=== PATIENT | male | born 1945 | race Caucasian/White ===

== ENCOUNTER → 2016-07-09 | Outpatient (REF) | payer OTHER ==
[~2016-07-09] MED LIST: ASPI325T PO; ATEN100T PO; ATOR40TA PO; BACT800T5 PO; CHLO25TA3 PO; GEMF600T PO; HYDR12.55 PO; HYDR12CA OR; MACR100C3 PO; PERC5TAB6 PO; PLAV75TA38 PO; POTA20PO4 PO; PRIN10TA PO; PROS5TAB PO; ROPI0.5T PO; TAMS0.4C PO; TYLE325T5 PO
[2016-07-09 10:08] LABS: MEAN CORPUSCULAR HEMOGLOBIN 31.9 pg (27.0-33.0); MEAN CORPUSCULAR HGB CONC 34.7 g/dl (32.0-36.5); MEAN CORPUSCULAR VOLUME 91.8 fl (80.0-96.0); RED CELL DISTRIBUTION WIDTH 12.9 % (11.5-14.5); WHITE BLOOD COUNT 6.6 K/mm3 (4.0-10.0)
[2016-07-09 10:30] LABS: ALBUMIN 3.4 GM/DL (3.2-5.2); ALBUMIN/GLOBULIN RATIO 0.87 (1.00-1.93); ALKALINE PHOSPHATASE 77 U/L (45-117); ALT/SGPT 16 U/L (12-78); ANION GAP 6 MEQ/L (8-16); AST/SGOT 16 U/L (15-37); BILIRUBIN,TOTAL 0.6 MG/DL (0.2-1.0); BLOOD UREA NITROGEN 13 MG/DL (7-18); CALCIUM LEVEL 8.7 MG/DL (8.8-10.2); CARBON DIOXIDE LEVEL 31 MEQ/L (21-32); CHLORIDE LEVEL 105 MEQ/L (98-107); CHOLESTEROL LEVEL 105 MG/DL (<200); CREATININE FOR GFR 0.87 MG/DL (0.70-1.30); GLOMERULAR FILTRATION RATE > 60.0 (>42); GLUCOSE, FASTING 105 MG/DL (83-110); POTASSIUM SERUM 4.4 MEQ/L (3.5-5.1); SODIUM LEVEL 142 MEQ/L (136-145); TOTAL PROTEIN 7.3 GM/DL (6.4-8.2); TRIGLYCERIDES LEVEL 158 MG/DL (<150)
== END | disposition home or self-care (01) ==
LOC: M LABDRAW1 09:35
PROVIDERS: ATTEND Family Medicine
DX: I65.29 Occlusion and stenosis of unspecified carotid artery (principal); E78.2 Mixed hyperlipidemia

== ENCOUNTER → 2016-07-10 | Outpatient (REF) | payer OTHER ==
[2016-07-10 15:44] LABS: MICROSCOPIC INDICATED? MAN YES (NO)
[2016-07-10 15:45] LABS: FREE T4 0.9 NG/DL (0.76-1.46)
[2016-07-10 16:21] LABS: FOLATE 10.8 NG/ML (>5.4)
[2016-07-10 17:21] LABS: BACTERIA, URINE LARGE AMOUNT; HYALINE CAST, URINE NONE SEEN /lpf (0-1); MICROSCOPIC EXAM PERFORMED; SQUAMOUS EPITHELIAL CELL URINE SMALL AMOUNT /hpf (SMALL AMT); WBC, URINE 30-40 /hpf (0-3)
== END ==
LOC: M SFHCADAM 12:03
PROVIDERS: ATTEND Family Medicine
DX: R53.83 Other fatigue (principal); I11.9 Hypertensive heart disease without heart failure

== ENCOUNTER → 2016-07-20 | Outpatient (REF) | payer OTHER | LOC: M SFHCPLAZ 15:36 | PROVIDERS: ATTEND Nurse Practitioner Family | DX: R82.90 Unspecified abnormal findings in urine (principal) | CPT/HCPCS: 87088; 87186; G0463 ==

== ENCOUNTER → 2016-08-07 | Outpatient (REF) | payer OTHER | LOC: M SMT 16:51 | PROVIDERS: ATTEND Nurse Practitioner Women's Health | DX: N39.0 Urinary tract infection, site not specified (principal) | CPT/HCPCS: 51798; 81001; 87088; 87186; G0463 ==

== ENCOUNTER → 2016-08-22 | Outpatient (CLI) | payer OTHER ==
--- NOTE | 2016-08-23 11:13 | REP ---
CT ABDOMEN AND PELVIS WITHOUT CONTRAST: 08/22/2016. Comparison: 03/16/2015. Clinical history of enlarged prostate, flank pain, UTI, history of renal stone disease. Bladder carcinoma. Technique: Noncontrast technique with coronal and sagittal reconstructions provided. CT abdomen: There is some basilar fibrotic change lower lung zones involving the inferior lingular segment and both lower lobes. Appearance similar to previous studies. Heart is not enlarged. There is no pericardial thickening or effusion. I see no hiatal hernia. There is no hepatosplenomegaly, focal hepatic or splenic lesion nor intrahepatic biliary dilatation. Gallbladder shows no calcified stone or mass. Pancreas is without mass, ductal dilatation or adjacent inflammatory change. No fluid collections noted. There is a small splenule adjacent to the anterior margin of the upper pole of the spleen unchanged. Adrenal glands normal. Kidneys show bilateral calcifications in the hilum most of them consistent with renal artery calcifications. lobation of the kidneys on both sides. I see no definite hydronephrosis, hydroureter or ureteral stone. No bladder stone or wall thickening noted. The aorta is diffusely calcified throughout and both iliac arteries also calcified. No periaortic or other retroperitoneal pathologic sized lymphadenopathy. Lung windows reviewed for each slice level shows no perforation or free air. The gas pattern shows stool and gas scattered in the colon and small bowel loops. Stool in the right colon and transverse colon with air filled redundant distal transverse colon in the midline and left upper quadrant but this is normal. Small bowel loops not dilated. No sign of obstruction. The bone windows show lumbar spine with mid lumbar vacuum phenomenon and sclerosis of the endplates and discogenic disease at L2-3 and less at L1-2, disc space narrowing L4-5 and L5-S1, less at L3-4. A few millimeters of anterolisthesis of L3 on 4. There is facet arthropathy and postoperative changes from laminectomy at L2-3 through L4. Central canal stenosis due to combined factors. CT pelvis: The bony hips show degenerative changes with joint space narrowing and rim osteophytes femoral heads and acetabula, mild. Iliac wings, SI joints and sacrum intact. There appears to be a bone graft harvest site along the posterior iliac bone near the sacroiliac joint for bone graft related to the prior laminectomy and fusion of the posterior elements and facets. There are heavy vascular calcifications in the iliac and femoral arteries without aneurysm. Small bowel loops deep pelvis unremarkable. Distal left colon, sigmoid and rectum intact. Small bowel loops without dilatation. The bladder shows no mass or stone, it is only partially filled. No ventral or inguinal hernia nor pathologic inguinal adenopathy. Appendix is seen and normal. Prostate not grossly enlarged. It does have a few calcifications. Impression: 1. There is no renal, ureteral or bladder stone. Calcifications in the renal hilar regions bilaterally are felt to be within the renal artery branches. 2. No colitis, diverticulitis, mass, obstruction. No free air. 3. Small bowel loops intact. The liver, spleen, gallbladder, pancreas and adrenal glands unremarkable. 4. No evidence of hiatal hernia. 5. Degenerative changes in the lumbar spine with laminectomies at L2-3, L3-4, posterior element fusion at those levels and advanced degenerative change at those levels, less at other levels. No acute destructive lesion. 6. Advanced atherosclerotic calcifications throughout aorta and iliac vessels. Signed by Lazaro Coronel MD 08/23/2016 04:40 P
== END ==
LOC: M RAD 17:16
PROVIDERS: ATTEND Nurse Practitioner Women's Health
DX: N40.0 Benign prostatic hyperplasia without lower urinary tract symptoms (principal); N39.0 Urinary tract infection, site not specified; R10.9 Unspecified abdominal pain; Z87.442 Personal history of urinary calculi; I70.0 Atherosclerosis of aorta; M51.36 Other intervertebral disc degeneration, lumbar region

== ENCOUNTER → 2016-08-23 | Outpatient (REF) | payer OTHER | LOC: M SMT 10:49 | PROVIDERS: ATTEND Urology | DX: N40.0 Benign prostatic hyperplasia without lower urinary tract symptoms (principal) | CPT/HCPCS: 51798; 81001; 87086; G0463 ==

== ENCOUNTER → 2016-09-17 | Outpatient (REF) | payer OTHER | LOC: M SMT 13:38 | PROVIDERS: ATTEND Urology | DX: R31.29 Other microscopic hematuria (principal) | CPT/HCPCS: 81001; 87088; 87186; G0463 ==

== ENCOUNTER → 2017-01-28 | Outpatient (REF) | payer OTHER ==
[~2017-01-28] MED LIST changes: -ATOR40TA PO; +ATOR40TA75 PO; -MACR100C3 PO; +MACR100C43 PO; +PERC5TAB12 PO; -PERC5TAB6 PO; +PLAV1TAB2 PO; -PLAV75TA38 PO
== END ==
LOC: M SMT 17:24
PROVIDERS: ATTEND Urology
DX: N39.0 Urinary tract infection, site not specified (principal)

== ENCOUNTER → 2017-02-12 | Outpatient (REF) | payer OTHER | LOC: M SMT 12:56 | PROVIDERS: ATTEND Nurse Practitioner Women's Health | DX: N39.0 Urinary tract infection, site not specified (principal) ==

== ENCOUNTER → 2017-03-05 | Outpatient (CLI) | payer OTHER ==
--- NOTE | 2017-03-05 10:44 | REP ---
PA and lateral chest: Comparison is 07/12/2011. The lung saravia are clear. The cardiac size is normal The awais, mediastinum, and bony thorax are unremarkable. Impression: Negative PA and lateral chest. . There is no interval change. Signed by Félix Zazueta MD 03/05/2017 10:36 A
== END ==
LOC: M ADAMS 09:57
PROVIDERS: ATTEND Family Medicine
DX: J20.8 Acute bronchitis due to other specified organisms (principal)

== ENCOUNTER → 2017-03-08 | Outpatient (REF) | payer OTHER ==
[2017-03-08 14:10] LABS: ALBUMIN 3.5 GM/DL (3.2-5.2); ALKALINE PHOSPHATASE 81 U/L (45-117); ALT/SGPT 18 U/L (12-78); ANION GAP 7 MEQ/L (8-16); AST/SGOT 20 U/L (15-37); BILIRUBIN,TOTAL 0.7 MG/DL (0.2-1.0); BLOOD UREA NITROGEN 12 MG/DL (7-18); CALCIUM LEVEL 9.1 MG/DL (8.8-10.2); CARBON DIOXIDE LEVEL 32 MEQ/L (21-32); CHLORIDE LEVEL 101 MEQ/L (98-107); CHOLESTEROL LEVEL 81 MG/DL (<200); CREATININE FOR GFR 0.82 MG/DL (0.70-1.30); GLOMERULAR FILTRATION RATE > 60.0 (>42); GLUCOSE, FASTING 103 MG/DL (83-110); POTASSIUM SERUM 4.8 MEQ/L (3.5-5.1); SODIUM LEVEL 140 MEQ/L (136-145); TRIGLYCERIDES LEVEL 134 MG/DL (<150)
[2017-03-08 14:13] LABS: MEAN CORPUSCULAR HEMOGLOBIN 33.3 pg (27.0-33.0); MEAN CORPUSCULAR HGB CONC 35.4 g/dl (32.0-36.5); RED CELL DISTRIBUTION WIDTH 12.9 % (11.5-14.5); WHITE BLOOD COUNT 6.4 K/mm3 (4.0-10.0)
== END ==
LOC: M LABDRAW1 13:30
PROVIDERS: ATTEND Family Medicine
DX: N39.0 Urinary tract infection, site not specified (principal); I65.29 Occlusion and stenosis of unspecified carotid artery; I11.9 Hypertensive heart disease without heart failure; E74.9 Disorder of carbohydrate metabolism, unspecified; E78.2 Mixed hyperlipidemia; L83 Acanthosis nigricans

== ENCOUNTER → 2017-03-20 | Outpatient (REF) | payer OTHER | LOC: M SMT 12:47 | PROVIDERS: ATTEND Urology | DX: R31.29 Other microscopic hematuria (principal) | CPT/HCPCS: 81001; 87086; G0463 ==

== ENCOUNTER 2017-09-12 10:37 | Day surgery (SDC) | payer OTHER ==
[2017-09-12] MEDS: NS 1,000 ML IV (11:00)
[2017-09-12] MEDS ORDERED: LIDOCAINE 2% INJ 100 MG/5 ML SDV (FOR ANES.) As Ordered (11:20)
[2017-09-12] MEDS ORDERED: hydrALAZINE INJ 20 MG/ML VIAL As Ordered (12:17)
[2017-09-12] MEDS ORDERED: ONDANSETRON 4MG/2ML VIAL (J2405) As Ordered (12:19)
[2017-09-12] MEDS ORDERED: PROPOFOL 200 MG/20 ML VIAL As Ordered (12:24)
[2017-09-12] MEDS ORDERED: MIDAZOLAM INJ 2 MG/2 ML VIAL (J2250) As Ordered ×2 (12:30→12:45)
[2017-09-12] MEDS ORDERED: ePHEDrine SULFATE 25 MG/5 ML(5MG/ML) SYRINGE As Ordered (12:38)
== END 2017-09-12 13:58 | disposition home or self-care (01) ==
LOC: M OPP 10:37
DX: K62.5 Hemorrhage of anus and rectum (principal); Z80.0 Family history of malignant neoplasm of digestive organs; R10.2 Pelvic and perineal pain; R19.4 Change in bowel habit; K64.8 Other hemorrhoids; K62.89 Other specified diseases of anus and rectum; K63.89 Other specified diseases of intestine; I10 Essential (primary) hypertension; C67.8 Malignant neoplasm of overlapping sites of bladder; E78.5 Hyperlipidemia, unspecified; I73.9 Peripheral vascular disease, unspecified; M54.89 Other dorsalgia; F41.9 Anxiety disorder, unspecified; Z86.73 Personal history of transient ischemic attack (TIA), and cerebral infarction without residual deficits; G47.30 Sleep apnea, unspecified; N40.1 Benign prostatic hyperplasia with lower urinary tract symptoms; M48.00 Spinal stenosis, site unspecified; G25.81 Restless legs syndrome; J44.9 Chronic obstructive pulmonary disease, unspecified; F17.200 Nicotine dependence, unspecified, uncomplicated; Z88.0 Allergy status to penicillin; Z88.4 Allergy status to anesthetic agent; Z79.82 Long term (current) use of aspirin; Z79.899 Other long term (current) drug therapy
CPT/HCPCS: 45378

== ENCOUNTER → 2017-12-10 | Outpatient (CLI) | payer OTHER ==
[~2017-12-10] MED LIST changes: -ASPI325T PO; -ATEN100T PO; -ATOR40TA75 PO; -BACT800T5 PO; -CHLO25TA3 PO; +E-Z-GAS II EFFERVESCENT PACKET (SODIUM BICARB./CITRIC ACID/SIMETHICONE) As Ordered; +E-Z-HD 98% w/w 340GM SUSP BTL As Ordered; +E-Z-PAQUE 96% w/w SUSP 176GM BTL As Ordered; -GEMF600T PO; -HYDR12.55 PO; -HYDR12CA OR; -MACR100C43 PO; -PERC5TAB12 PO; -PLAV1TAB2 PO; -POTA20PO4 PO; -PRIN10TA PO; -PROS5TAB PO; -ROPI0.5T PO; -TAMS0.4C PO; -TYLE325T5 PO
== END ==
LOC: M RAD 07:47
DX: R11.0 Nausea (principal); R14.0 Abdominal distension (gaseous)
CPT/HCPCS: 74245

== ENCOUNTER → 2017-12-25 | Outpatient (REF) | payer OTHER ==
[2017-12-25 12:28] LABS: ALBUMIN 3.4 GM/DL (3.2-5.2); ALBUMIN/GLOBULIN RATIO 0.94 (1.00-1.93); ALKALINE PHOSPHATASE 93 U/L (45-117); ALT/SGPT 18 U/L (12-78); ANION GAP 5 MEQ/L (8-16); AST/SGOT 16 U/L (7-37); BILIRUBIN,TOTAL 0.4 MG/DL (0.2-1.0); BLOOD UREA NITROGEN 11 MG/DL (7-18); CALCIUM LEVEL 8.7 MG/DL (8.8-10.2); CARBON DIOXIDE LEVEL 32 MEQ/L (21-32); CHLORIDE LEVEL 105 MEQ/L (98-107); CREATININE FOR GFR 0.77 MG/DL (0.70-1.30); GLOMERULAR FILTRATION RATE > 60.0 (>42); GLUCOSE, FASTING 97 MG/DL (70-100); POTASSIUM SERUM 4.2 MEQ/L (3.5-5.1); SODIUM LEVEL 142 MEQ/L (136-145)
== END ==
LOC: M LABDRAW1 11:48
DX: I11.9 Hypertensive heart disease without heart failure (principal); E78.2 Mixed hyperlipidemia
CPT/HCPCS: 80053

== ENCOUNTER → 2018-02-21 | Outpatient (REF) | payer OTHER ==
[2018-02-21 20:00] LABS: APPEARANCE, URINE CLOUDY (CLEAR); BACTERIA, URINE AUTO 2+ (NEGATIVE); BILIRUBIN, URINE AUTO NEGATIVE (NEGATIVE); BLOOD, URINE BLOOD 3+ (NEGATIVE); COLOR, URINE AMBER (YELLOW); GLUCOSE, URINE (UA) AUTO NEGATIVE (NEGATIVE); KETONE, URINE AUTO NEGATIVE (NEGATIVE); LEUKOCYTE ESTERASE, URINE AUTO 2+ (NEGATIVE); MUCUS, URINE SMALL (NEGATIVE); NITRITE, URINE AUTO NEGATIVE (NEGATIVE); PROTEIN, URINE AUTO 2+ mg/dL (NEGATIVE); RBC, URINE AUTO TNTC /HPF (0-3); SPECIFIC GRAVITY URINE AUTO 1.017 (1.002-1.035); SQUAMOUS EPITHELIAL CELL UR AU 1 /HPF (0-6); WBC, URINE AUTO 141 /HPF (0-3)
== END ==
LOC: M SMT 17:02
DX: R35.0 Frequency of micturition (principal)
CPT/HCPCS: 81001

== ENCOUNTER → 2018-04-01 | Outpatient (REF) | payer OTHER ==
[2018-04-01 13:40] LABS: TROPONIN I < 0.02 NG/ML (< 0.10)
[2018-04-02 15:10] LABS: ALBUMIN 3.6 GM/DL (3.2-5.2); ALBUMIN/GLOBULIN RATIO 1.06 (1.00-1.93); ALKALINE PHOSPHATASE 78 U/L (45-117); ALT/SGPT 17 U/L (12-78); ANION GAP 7 MEQ/L (8-16); AST/SGOT 16 U/L (7-37); BILIRUBIN,TOTAL 0.6 MG/DL (0.2-1.0); BLOOD UREA NITROGEN 16 MG/DL (7-18); CALCIUM LEVEL 8.7 MG/DL (8.8-10.2); CARBON DIOXIDE LEVEL 30 MEQ/L (21-32); CHLORIDE LEVEL 107 MEQ/L (98-107); CREATININE FOR GFR 0.94 MG/DL (0.70-1.30); GLOMERULAR FILTRATION RATE > 60.0 (>42); GLUCOSE, FASTING 97 MG/DL (70-100); POTASSIUM SERUM 4.7 MEQ/L (3.5-5.1); SODIUM LEVEL 144 MEQ/L (136-145)
== END ==
LOC: M SFHCADAM 11:03
DX: R42 Dizziness and giddiness (principal); R68.84 Jaw pain
CPT/HCPCS: 80053

== ENCOUNTER → 2018-04-02 | Outpatient (CLI) | payer OTHER | LOC: M PLARAD 13:02 | DX: C21.1 Malignant neoplasm of anal canal (principal); R42 Dizziness and giddiness; R68.84 Jaw pain; H53.9 Unspecified visual disturbance; Z86.73 Personal history of transient ischemic attack (TIA), and cerebral infarction without residual deficits | CPT/HCPCS: 70553 ==

== ENCOUNTER → 2018-04-04 | Outpatient (REF) | payer OTHER ==
[2018-04-04 20:05] LABS: HEMATOCRIT 44.3 % (42.0-52.0); HEMOGLOBIN 14.5 g/dl (13.5-17.5); MEAN CORPUSCULAR HEMOGLOBIN 31.9 pg (27.0-33.0); MEAN CORPUSCULAR HGB CONC 32.7 g/dl (32.0-36.5); MEAN CORPUSCULAR VOLUME 97.6 fl (80.0-96.0); PLATELET COUNT, AUTOMATED 209 10^3/uL (150-450); RED BLOOD COUNT 4.54 10^6/uL (4.30-6.10); RED CELL DISTRIBUTION WIDTH 13.6 % (11.5-14.5); WHITE BLOOD COUNT 6.5 10^3/uL (4.0-10.0)
[2018-04-04 21:25] LABS: ERYTHROCYTE SEDIMENTATION RATE 5 mm/hr (0-20)
== END ==
LOC: M SFHCADAM 12:38
DX: R42 Dizziness and giddiness (principal)
CPT/HCPCS: 85027

== ENCOUNTER → 2018-06-05 | Outpatient (REF) | payer OTHER ==
[~2018-06-05] MED LIST changes: +ASPI325T PO; +ATEN100T PO; +ATOR40TA75 PO; +BACT800T5 PO; +CHLO25TA3 PO; -E-Z-GAS II EFFERVESCENT PACKET (SODIUM BICARB./CITRIC ACID/SIMETHICONE) As Ordered; -E-Z-HD 98% w/w 340GM SUSP BTL As Ordered; -E-Z-PAQUE 96% w/w SUSP 176GM BTL As Ordered; +GEMF600T PO; +HYDR12.55 PO; +HYDR12CA OR; +MACR100C43 PO; +PERC5TAB12 PO; +PLAV1TAB2 PO; +POTA20PO4 PO; +PRIN10TA PO; +PROS5TAB PO; +ROPI0.5T PO; +TAMS0.4C PO; +TYLE325T5 PO; +TYLE500T78 PO
[2018-06-05 13:00] LABS: HEMATOCRIT 43.4 % (42.0-52.0); HEMOGLOBIN 14.7 g/dl (13.5-17.5); MEAN CORPUSCULAR HEMOGLOBIN 32.2 pg (27.0-33.0); MEAN CORPUSCULAR HGB CONC 33.9 g/dl (32.0-36.5); MEAN CORPUSCULAR VOLUME 95.2 fl (80.0-96.0); PLATELET COUNT, AUTOMATED 205 10^3/uL (150-450); RED BLOOD COUNT 4.56 10^6/uL (4.30-6.10); WHITE BLOOD COUNT 7.7 10^3/uL (4.0-10.0)
[2018-06-05 13:05] LABS: ALBUMIN 3.4 GM/DL (3.2-5.2); ALT/SGPT 17 U/L (12-78); BILIRUBIN,TOTAL 0.4 MG/DL (0.2-1.0); BLOOD UREA NITROGEN 10 MG/DL (7-18); CALCIUM LEVEL 8.6 MG/DL (8.8-10.2); CARBON DIOXIDE LEVEL 29 MEQ/L (21-32); CHLORIDE LEVEL 103 MEQ/L (98-107); CHOLESTEROL LEVEL 88 MG/DL (<200); CREATININE FOR GFR 0.92 MG/DL (0.70-1.30); GLOMERULAR FILTRATION RATE > 60.0 (>42); GLUCOSE, FASTING 124 MG/DL (70-100); HDL CHOLESTEROL 40 MG/DL (>40); LDL CHOLESTEROL 34 MG/DL (<100); NON-HDL-C 48 MG/DL; SODIUM LEVEL 140 MEQ/L (136-145); TOTAL PROTEIN 6.9 GM/DL (6.4-8.2); TRIGLYCERIDES LEVEL 70 MG/DL (<150)
[2018-06-05 13:39] LABS: HEMOGLOBIN A1c 6.2 %
== END ==
LOC: M LABDRAW1 12:07
PROVIDERS: ATTEND Family Medicine
DX: J44.9 Chronic obstructive pulmonary disease, unspecified (principal); I11.9 Hypertensive heart disease without heart failure; E74.9 Disorder of carbohydrate metabolism, unspecified; E78.2 Mixed hyperlipidemia

== ENCOUNTER → 2018-06-26 | Outpatient (REF) | payer MEDICARE, OTHER ==
[2018-06-26 11:58] LABS: APPEARANCE, URINE CLOUDY (CLEAR); BACTERIA, URINE AUTO 3+ (NEGATIVE); BILIRUBIN, URINE AUTO NEGATIVE (NEGATIVE); BLOOD, URINE BLOOD 3+ (NEGATIVE); COLOR, URINE YELLOW (YELLOW); GLUCOSE, URINE (UA) AUTO NEGATIVE (NEGATIVE); KETONE, URINE AUTO NEGATIVE (NEGATIVE); LEUKOCYTE ESTERASE, URINE AUTO 3+ (NEGATIVE); MUCUS, URINE SMALL (NEGATIVE); NITRITE, URINE AUTO POSITIVE (NEGATIVE); PROTEIN, URINE AUTO 1+ mg/dL (NEGATIVE); RBC, URINE AUTO TNTC /HPF (0-3); SPECIFIC GRAVITY URINE AUTO 1.014 (1.002-1.035); SQUAMOUS EPITHELIAL CELL UR AU 0 /HPF (0-6); WBC, URINE AUTO TNTC /HPF (0-3)
== END ==
LOC: M SMT 10:52
PROVIDERS: ATTEND Nurse Practitioner Women's Health
DX: R31.0 Gross hematuria (principal)
CPT/HCPCS: 81001; 87088; 87186; 88108; G0463

== ENCOUNTER → 2018-07-14 | Outpatient (REF) | payer MEDICARE | LOC: M SMT 13:20 | PROVIDERS: ATTEND Nurse Practitioner Women's Health | DX: N39.0 Urinary tract infection, site not specified (principal) ==

== ENCOUNTER 2018-10-11 01:03 | Emergency (ER) | payer MEDICARE ==
[~2018-10-11] VITALS: Ht 180.3 cm; Wt 87.3 kg
[2018-10-11 01:03] VITALS: BP 166/77
[~2018-10-11 01:03] MED LIST changes: +ASPI-1 PO
[2018-10-11] MEDS ORDERED: AMIT24CA7 (01:14)
[2018-10-11] MEDS ORDERED: CLOP75TA2 (01:14)
[2018-10-11] MEDS ORDERED: CLEO300C2 PO (04:01)
== END 2018-10-11 04:40 | disposition home or self-care (01) ==
LOC: M ED 01:03
DX: H60.01 Abscess of right external ear (principal); I10 Essential (primary) hypertension; Z79.899 Other long term (current) drug therapy; Z79.82 Long term (current) use of aspirin; Z88.0 Allergy status to penicillin; Z88.6 Allergy status to analgesic agent; F17.210 Nicotine dependence, cigarettes, uncomplicated

== ENCOUNTER 2018-10-21 17:19 | Emergency (ER) | payer MEDICARE ==
[~2018-10-21] VITALS: Ht 180.3 cm; Wt 79.9 kg
[~2018-10-21 17:19] MED LIST changes: +AMIT24CA7; +CLEO300C2 PO; +CLOP75TA2
[2018-10-21] MEDS ORDERED: NS 1,000 ML IV ONE (19:15)
[2018-10-21 19:29] LABS: BILIRUBIN, URINE MANUAL NEGATIVE (NEGATIVE); GLUCOSE, URINE (UA) MANUAL NEGATIVE (NEGATIVE); KETONE, URINE MANUAL NEGATIVE (NEGATIVE); UROBILINOGEN, URINE MANUAL NORMAL (NORMAL)
[2018-10-21 19:39] LABS: BACTERIA, URINE SMALL AMOUNT; HYALINE CAST, URINE NONE SEEN /lpf (0-1); RBC, URINE TNTC /hpf (0-3); SQUAMOUS EPITHELIAL CELL URINE SMALL AMOUNT /hpf (SMALL AMT)
[2018-10-21 19:58] LABS: HEMATOCRIT 42.1 % (42.0-52.0); HEMOGLOBIN 14.1 g/dl (13.5-17.5); MEAN CORPUSCULAR HEMOGLOBIN 31.6 pg (27.0-33.0); MEAN CORPUSCULAR HGB CONC 33.5 g/dl (32.0-36.5); MEAN CORPUSCULAR VOLUME 94.4 fl (80.0-96.0); PLATELET COUNT, AUTOMATED 201 10^3/uL (150-450); RED BLOOD COUNT 4.46 10^6/uL (4.30-6.10); WHITE BLOOD COUNT 7.7 10^3/uL (4.0-10.0)
[2018-10-21 20:19] LABS: INR 0.95; PROTHROMBIN TIME 12.8 SECONDS (12.1-14.4)
[2018-10-21 20:29] LABS: ALBUMIN 3.4 GM/DL (3.2-5.2); ALT/SGPT 15 U/L (12-78); BILIRUBIN,DIRECT 0.1 MG/DL (0.0-0.2); BILIRUBIN,TOTAL 0.5 MG/DL (0.2-1.0); BLOOD UREA NITROGEN 10 MG/DL (7-18); CALCIUM LEVEL 8.7 MG/DL (8.8-10.2); CARBON DIOXIDE LEVEL 32 MEQ/L (21-32); CHLORIDE LEVEL 103 MEQ/L (98-107); CREATININE FOR GFR 0.92 MG/DL (0.70-1.30); GLOMERULAR FILTRATION RATE > 60.0 (>42); GLUCOSE, FASTING 99 MG/DL (70-100); LIPASE 79 U/L (73-393); POTASSIUM SERUM 3.9 MEQ/L (3.5-5.1); SODIUM LEVEL 139 MEQ/L (136-145); TOTAL PROTEIN 6.7 GM/DL (6.4-8.2)
[2018-10-21 21:58] VITALS: BP 152/66
--- NOTE | 2018-10-21 22:14 | REPVR ---
EXAM: US Pelvis Limited, Male EXAM DATE/TIME: 10/21/2018 9:01 PM CLINICAL HISTORY: 72 years old, male; Signs and symptoms; Bladder; Hematuria; Prior surgery; Surgery date: 6+ months; Additional info: Hematuria, HX bladder cancer TECHNIQUE: Imaging protocol: Real-time pelvic ultrasound with image documentation. COMPARISON: CT ABD PELVIS W/O CONTRAST 08/22/2016 5:24 PM FINDINGS: Free fluid: There is no evidence of free fluid. Bladder: There is a small post void residual. Other findings: There is a large amount of echogenic debris along the posterior aspect of the gallbladder which changes positions. This may be sediment or hemorrhagic material. No large clots or masses seen. IMPRESSION: Large amount of mobile echogenic material in the dependent portion of the urinary bladder. This may be sediment or blood products. Small post void residual. Electronically signed by: Darrin Aly On 10/21/2018 22:14:05 PM
== END 2018-10-21 22:00 | disposition home or self-care (01) ==
LOC: M ED 17:19
DX: R31.0 Gross hematuria (principal); I10 Essential (primary) hypertension; C61 Malignant neoplasm of prostate; N40.1 Benign prostatic hyperplasia with lower urinary tract symptoms; K40.90 Unilateral inguinal hernia, without obstruction or gangrene, not specified as recurrent; Z87.440 Personal history of urinary (tract) infections; Z87.442 Personal history of urinary calculi; Z79.82 Long term (current) use of aspirin; Z79.899 Other long term (current) drug therapy; Z88.0 Allergy status to penicillin; Z88.4 Allergy status to anesthetic agent

== ENCOUNTER → 2018-12-01 | Outpatient (REF) | payer MEDICARE ==
[2018-12-01 12:05] LABS: HEMATOCRIT 43.5 % (42.0-52.0); HEMOGLOBIN 14.5 g/dl (13.5-17.5); MEAN CORPUSCULAR HEMOGLOBIN 31.9 pg (27.0-33.0); MEAN CORPUSCULAR HGB CONC 33.3 g/dl (32.0-36.5); MEAN CORPUSCULAR VOLUME 95.6 fl (80.0-96.0); PLATELET COUNT, AUTOMATED 196 10^3/uL (150-450); RED BLOOD COUNT 4.55 10^6/uL (4.30-6.10); WHITE BLOOD COUNT 5.7 10^3/uL (4.0-10.0)
[2018-12-01 12:30] LABS: ALBUMIN 3.1 GM/DL (3.2-5.2); ALT/SGPT 13 U/L (12-78); BILIRUBIN,TOTAL 0.4 MG/DL (0.2-1.0); BLOOD UREA NITROGEN 9 MG/DL (7-18); CALCIUM LEVEL 8.9 MG/DL (8.8-10.2); CARBON DIOXIDE LEVEL 34 MEQ/L (21-32); CHLORIDE LEVEL 105 MEQ/L (98-107); CHOLESTEROL LEVEL 87 MG/DL (<200); CHOLESTEROL RISK RATIO 2.121 (<5); FREE T4 0.97 NG/DL (0.76-1.46); GLOMERULAR FILTRATION RATE > 60.0 (>42); GLUCOSE, FASTING 98 MG/DL (70-100); HDL CHOLESTEROL 41 MG/DL (>40); LDL CHOLESTEROL 30 MG/DL (<100); NON-HDL-C 46 MG/DL; POTASSIUM SERUM 3.7 MEQ/L (3.5-5.1); SODIUM LEVEL 142 MEQ/L (136-145); THYROID STIMULATING HORMONE 0.928 uIU/ML (0.358-3.740); TOTAL PROTEIN 6.4 GM/DL (6.4-8.2); TRIGLYCERIDES LEVEL 81 MG/DL (<150)
== END ==
LOC: M LABDRAW1 11:42
PROVIDERS: ATTEND Family Medicine
DX: R31.0 Gross hematuria (principal); E78.2 Mixed hyperlipidemia

== ENCOUNTER → 2019-01-21 | Outpatient (REF) | payer MEDICARE ==
[2019-01-21 19:18] LABS: APPEARANCE, URINE MANUAL TURBID (CLEAR); BACTERIA, URINE NONE SEEN; BILIRUBIN, URINE MANUAL NEGATIVE (NEGATIVE); BLOOD URINE MANUAL POSITIVE (NEGATIVE); COLOR, URINE MANUAL RED (YELLOW); GLUCOSE, URINE (UA) MANUAL NEGATIVE (NEGATIVE); HYALINE CAST, URINE NONE SEEN /lpf (0-1); KETONE, URINE MANUAL NEGATIVE (NEGATIVE); LEUKOCYTE ESTERASE, URINE MAN TRACE (NEGATIVE); NITRITE, URINE MANUAL NEGATIVE (NEGATIVE); PROTEIN, URINE MANUAL 3+ mg/dL (NEGATIVE); RBC, URINE TNTC /hpf (0-3); SQUAMOUS EPITHELIAL CELL URINE NONE SEEN /hpf (SMALL AMT); UROBILINOGEN, URINE MANUAL NORMAL (NORMAL); WBC, URINE NONE SEEN /hpf (0-3)
== END ==
LOC: M SMT 17:32
PROVIDERS: ATTEND Nurse Practitioner Women's Health
DX: R31.0 Gross hematuria (principal)

== ENCOUNTER → 2019-01-30 | Outpatient (REF) | payer MEDICARE ==
[2019-01-30 11:59] LABS: BLOOD UREA NITROGEN 13 MG/DL (7-18); CALCIUM LEVEL 8.9 MG/DL (8.8-10.2); CARBON DIOXIDE LEVEL 30 MEQ/L (21-32); CHLORIDE LEVEL 102 MEQ/L (98-107); CREATININE FOR GFR 0.87 MG/DL (0.70-1.30); GLOMERULAR FILTRATION RATE > 60.0 (>42); GLUCOSE, FASTING 98 MG/DL (70-100); POTASSIUM SERUM 4.3 MEQ/L (3.5-5.1); SODIUM LEVEL 138 MEQ/L (136-145)
== END ==
LOC: M LABDRAW1 07:33
PROVIDERS: ATTEND Nurse Practitioner Women's Health
DX: R31.0 Gross hematuria (principal)

== ENCOUNTER → 2019-02-03 | Outpatient (CLI) | payer MEDICARE ==
[~2019-02-03] MED LIST changes: +ISOVUE-370 76% 100ML VIAL (Q9967) As Ordered ONE
--- NOTE | 2019-02-03 11:09 | REP ---
CT of the abdomen pelvis without and with IV contrast, CT urogram protocol: Comparison is 08/22/2016. The patient currently has gross hematuria. The patient has a clinical history of bladder carcinoma and renal calculi. There are multiple nonobstructive calculi in the renal awais bilaterally, similar to the prior study. There is no hydronephrosis. I suspect that these calculi are vascular atheroma, as previously. However, I suspect there is an enhancing mass in the right renal pelvis measuring approximate 2.6 cm in diameter. On the renal excretion phase of the study this mass appears to be a filling defect in the right renal pelvis, and may represent an intraluminal neoplasm such as transitional cell carcinoma. There are no ureteral or bladder calculi. The there is no hydroureter. There are no bladder calculi. No bladder masses are identified by CT. The prostate appears enlarged and effaces the bladder base. The prostatic urethra appears irregular suggestive of TURP. The visualized lung saravia are unremarkable. There are multiple small hypodensities in the liver, unchanged from the prior study, too small to further characterize by CT. The gallbladder, pancreas and spleen are unremarkable. There is a small splenule medial to the splenic lower pole as an anatomic variant, unchanged. The adrenals are unremarkable. There are renal calculi, as described, likely vascular atheroma. There is question of a mass in the right renal pelvis as described above. The abdominal aorta is unremarkable except for heavily calcified vascular atheroma. No periaortic adenopathy or mass are identified. The bowel and mesentery are unremarkable. There is a large volume of fecal residue in the sigmoid colon and rectal ampulla, possibly an impaction. The prostate appears enlarged and effaces the bladder base. There is no pelvic adenopathy or ascites. There is heavily calcified vascular atheroma in the iliac and femoral arteries. Impression: Question an enhancing intraluminal mass in the right renal pelvis as described. Consider follow-up ultrasound or MRI for further evaluation. Biopsy may ultimately be required. Urine cytology might also be considered. Upon review of prior studies dated 07/18/2011 and 11/29/2014. I believe this finding was also present previously but appears to have enlarged, measuring 2.6 cm today and 1.7 cm on 07/18/2011, image 57. No bladder masses are identified. The prostate appears enlarged and effaces the bladder base. The prostatic urethra appears irregular suggestive of TURP. Heavily calcified vascular atheroma is identified in the abdominal aorta, iliac arteries and femoral arteries. No adenopathy or ascites. Multiple renal calculi bilaterally, unchanged, likely vascular atheromatous calcification. Multiple small hepatic hypodensities, unchanged, and cannot be further characterized by CT. Questionable fecal impaction. No bowel distension or obstruction. The Electronically Signed by Félix Zazueta MD 02/03/2019 11:01 A
== END ==
LOC: M RAD 07:41
PROVIDERS: ATTEND Nurse Practitioner Women's Health
DX: R31.0 Gross hematuria (principal); Z85.51 Personal history of malignant neoplasm of bladder; N20.0 Calculus of kidney; I70.0 Atherosclerosis of aorta; I70.203 Unspecified atherosclerosis of native arteries of extremities, bilateral legs
CPT/HCPCS: 74178; Q9967

== ENCOUNTER → 2019-02-23 | Outpatient (CLI) | payer MEDICARE ==
[~2019-02-23] MED LIST changes: -AMIT24CA7; +AMIT24CA7 PO; +COLA100C5 PO; +HYDR25TAB PO; -ISOVUE-370 76% 100ML VIAL (Q9967) As Ordered ONE; +LISI40TA PO; +POTA20TA6 PO
--- NOTE | 2019-02-23 12:21 | REP ---
Chest x-ray: Three views. History: Preoperative testing. Comparison study: March 05, 2017. Findings: The lungs are hyperinflated but clear. The pleural angles are sharp. Heart size is normal. Thoracic aorta is calcific and somewhat tortuous. Pulmonary vasculature is not increased. No significant bony abnormality is appreciated. Impression: Hyperinflation. Otherwise no acute disease. Electronically Signed by Chon Marsh MD 02/23/2019 09:20 A
[2019-02-23 14:06] LABS: HEMATOCRIT 44.2 % (42.0-52.0); HEMOGLOBIN 14.4 g/dl (13.5-17.5); MEAN CORPUSCULAR HEMOGLOBIN 30.7 pg (27.0-33.0); MEAN CORPUSCULAR HGB CONC 32.6 g/dl (32.0-36.5); MEAN CORPUSCULAR VOLUME 94.2 fl (80.0-96.0); PLATELET COUNT, AUTOMATED 197 10^3/uL (150-450); RED BLOOD COUNT 4.69 10^6/uL (4.30-6.10); WHITE BLOOD COUNT 6.5 10^3/uL (4.0-10.0)
[2019-02-23 14:23] LABS: BLOOD UREA NITROGEN 9 MG/DL (7-18); CALCIUM LEVEL 9.1 MG/DL (8.8-10.2); CARBON DIOXIDE LEVEL 30 MEQ/L (21-32); CHLORIDE LEVEL 101 MEQ/L (98-107); CREATININE FOR GFR 0.95 MG/DL (0.70-1.30); GLOMERULAR FILTRATION RATE > 60.0 (>42); GLUCOSE, FASTING 123 MG/DL (70-100); POTASSIUM SERUM 4.2 MEQ/L (3.5-5.1); SODIUM LEVEL 140 MEQ/L (136-145)
[2019-02-23 14:30] LABS: INR 0.95; PROTHROMBIN TIME 12.4 SECONDS (11.8-14.0)
[2019-02-23 14:31] LABS: PARTIAL THROMBOPLASTIN TIME 31.5 SECONDS (25.0-38.4)
== END ==
LOC: M ADAMS 08:52
PROVIDERS: ATTEND Nurse Practitioner Women's Health
DX: Z01.818 Encounter for other preprocedural examination (principal); Z79.01 Long term (current) use of anticoagulants; N28.89 Other specified disorders of kidney and ureter

== ENCOUNTER 2019-03-08 08:59 | Emergency (ER) | payer MEDICARE ==
[~2019-03-08] VITALS: Ht 180.3 cm; Wt 84.1 kg
[2019-03-08] MEDS ORDERED: CARISOPRODOL 350 MG TAB PO ONE (10:00)
[2019-03-08] MEDS ORDERED: CYCL10TA PO (11:08)
[2019-03-08 11:29] VITALS: BP 140/80
== END 2019-03-08 11:30 | disposition home or self-care (01) ==
LOC: M ED 08:59
DX: M62.838 Other muscle spasm (principal); I10 Essential (primary) hypertension; I48.91 Unspecified atrial fibrillation; J44.9 Chronic obstructive pulmonary disease, unspecified; F41.9 Anxiety disorder, unspecified; F17.210 Nicotine dependence, cigarettes, uncomplicated; Z88.0 Allergy status to penicillin; Z88.6 Allergy status to analgesic agent; Z79.899 Other long term (current) drug therapy; Z79.82 Long term (current) use of aspirin; Z79.02 Long term (current) use of antithrombotics/antiplatelets

== ENCOUNTER → 2019-03-12 | Outpatient (REF) | payer MEDICARE ==
[~2019-03-12] MED LIST changes: +CYCL10TA PO
[2019-03-12 19:38] LABS: APPEARANCE, URINE CLEAR (CLEAR); BACTERIA, URINE AUTO NEGATIVE (NEGATIVE); BILIRUBIN, URINE AUTO NEGATIVE (NEGATIVE); BLOOD, URINE BLOOD 3+ (NEGATIVE); COLOR, URINE YELLOW (YELLOW); GLUCOSE, URINE (UA) AUTO NEGATIVE (NEGATIVE); KETONE, URINE AUTO NEGATIVE (NEGATIVE); LEUKOCYTE ESTERASE, URINE AUTO NEGATIVE (NEGATIVE); MUCUS, URINE SMALL (NEGATIVE); NITRITE, URINE AUTO NEGATIVE (NEGATIVE); PROTEIN, URINE AUTO NEGATIVE (NEGATIVE); RBC, URINE AUTO 50 /HPF (0-3); SPECIFIC GRAVITY URINE AUTO 1.009 (1.002-1.035); SQUAMOUS EPITHELIAL CELL UR AU 0 /HPF (0-6); UROBILINOGEN, URINE AUTO 0.2 mg/dL (0.0-2.0); WBC, URINE AUTO 3 /HPF (0-3)
== END ==
LOC: M SFHCADAM 14:14
PROVIDERS: ATTEND Physician Assistant Medical
DX: R31.0 Gross hematuria (principal)
CPT/HCPCS: 81001; 87086; 93005; G0463

== ENCOUNTER → 2019-03-17 | Outpatient (CLI) | payer MEDICARE ==
--- NOTE | 2019-03-18 08:28 | ECHO ---
DATE OF STUDY: 03/17/2019 REFERRING PHYSICIAN: Gege Diana INDICATION: Abnormal ECG. HEIGHT: 177 cm WEIGHT: 83 kg DIMENSIONS: IVS: 1.2 LV: 5.4 LVPW: 1.2 LA: 2.8 Aorta: 4.1 IVC: 1.0 Mitral E wave velocity: 50 A wave: 81 E prime septal: 4.7 E prime lateral : 5.7 FINDINGS: The study is of good technical quality. The patient is in sinus rhythm with frequent both ventricular and supraventricular ectopy. There is a wide QRS complex. Left ventricle is of normal size and normal systolic function. Mild left ventricular hypertrophy (LVH) is noted. I estimate left ventricle ejection fraction (LVEF) around 60-65%, calculated LVEF by computer was 57%. Right ventricle appears to be normal size and systolic function. Both atria appear normal. Aortic valve is three cuspid. It is mildly sclerotic, but mobility is preserved. Mitral, tricuspid and pulmonic valves appear normal. Aortic root is mildly dilated at 4.1 cm. Aortic arch and abdominal aorta were not well seen. There is no pericardial effusion. Inferior vena cava is normal caliber. Doppler interrogation of aortic valve reveals no stenosis and mild insufficiency. There is trace mitral insufficiency and trace tricuspid insufficiency. Calculated pulmonary artery pressure is in low 30s corresponding to mild pulmonary hypertension. Pulmonic valve is functionally competent. Mitral inflow pattern and tissue Doppler imaging of mitral annulus reveal grade 1 diastolic dysfunction. CONCLUSIONS: 1. Study is of acceptable technical quality. 2. Normal LV size with mild LVH and preserved LV systolic function. Grade 1 diastolic dysfunction. 3. Aortic sclerosis with no stenosis and mild insufficiency. 4. Trace mitral and tricuspid insufficiency. 5. Normal central venous pressure and likely mild pulmonary hypertension. 6. 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 COMMENT: Subacute bacterial endocarditis (SBE) prophylaxis is not recommended. Followup study to reevaluate the size of aortic root in 1-2 years is recommended.
== END ==
LOC: M CARPUL 10:32
PROVIDERS: ATTEND Physician Assistant Medical
DX: R94.31 Abnormal electrocardiogram [ECG] [EKG] (principal)

== ENCOUNTER 2019-03-20 10:48 | Day surgery (SDC) | payer MEDICARE ==
[~2019-03-20] VITALS: Ht 177.8 cm; Wt 76.2 kg
[2019-03-20] MEDS ORDERED: LR 1,000 ML IV ONE (12:00)
[2019-03-20] MEDS ORDERED: LevoFLOXacin IV 500 MG in IV 1 EA IV ONE (12:00)
[2019-03-20] MEDS ORDERED: CONRAY-60 60% 50ML VIAL (Q9961) As Ordered ONE (14:19)
[2019-03-20] MEDS ORDERED: MIDAZOLAM INJ 2 MG/2 ML VIAL (J2250) As Ordered ONE (14:20)
[2019-03-20] MEDS ORDERED: fentaNYL 100 MCG/2 ML INJECTION (J3010) As Ordered ONE (14:20)
[2019-03-20] MEDS ORDERED: PROPOFOL 200 MG/20 ML VIAL As Ordered ONE (14:21)
[2019-03-20] MEDS ORDERED: dexameTHASONE 4 MG/ML 1ML VIAL (J1100) As Ordered ONE (14:21)
[2019-03-20] MEDS ORDERED: ONDANSETRON 4MG/2ML VIAL (J2405) As Ordered ONE (14:21)
[2019-03-20] MEDS ORDERED: LIDOCAINE 2% INJ 100 MG/5 ML SDV (FOR ANES.) As Ordered ONE (14:21)
[2019-03-20] MEDS ORDERED: ePHEDrine SULFATE 25 MG/5 ML(5MG/ML) SYRINGE As Ordered ONE (15:10)
[2019-03-20] MEDS ORDERED: KETOROLAC 60 MG/2 ML VIAL (J1885) As Ordered ONE (15:39)
--- NOTE | 2019-03-20 16:24 | REP ---
Retrograde pyelogram: A series of two intraoperative fluoroscopic views are performed. There is a right ureteral stent with the proximal and distal pigtails in satisfactory locations. I suspect there has been surgical fusion of the lumbar spine. Fluoroscopic exposure time is 0.34 seconds. The fluoroscopic images are performed with last image hold technology and require no additional radiation. Electronically Signed by Félix Zazueta MD 03/20/2019 04:15 P
[2019-03-20] MEDS ORDERED: LR 1,000 ML IV SCH (16:30)
[2019-03-20] MEDS ORDERED: oxyCODONE 5MG TAB PO PRN (16:30)
[2019-03-20] MEDS ORDERED: ONDANSETRON 4MG/2ML VIAL (J2405) IV PRN (16:30)
[2019-03-20] MEDS ORDERED: ACETAMINOPHEN TAB 650MG DOSE (2X325MG) PO PRN (16:30)
[2019-03-20] MEDS ORDERED: fentaNYL 100 MCG/2 ML INJECTION (J3010) IV PRN (16:30)
[2019-03-20 17:45] VITALS: BP 179/76
--- NOTE | 2019-03-21 13:25 | RO ---
DATE OF PROCEDURE: 03/20/2019 PREPROCEDURE DIAGNOSIS: Right renal mass. POSTPROCEDURE DIAGNOSIS: Right renal mass, right ureteral stricture. PROCEDURE: Cystoscopy, right ureteroscopy with kidney biopsies and ureteral dilation, right retrograde pyelogram with intraoperative interpretation of images, right ureteral stent placement. SURGEON: Dr. George Thompson WATCH CASE POLISHER: None. ANESTHESIA: General. OPERATIVE INDICATIONS: This is a 73-year-old male who has been having gross hematuria and recent CT scan found to have a large right renal pelvic mass. He was brought to the operating room today for workup. DESCRIPTION OF PROCEDURE: The patient was brought to the operating room where general anesthesia was induced. Prophylactic antibiotics were infused. He was then placed in dorsal lithotomy position, prepped and draped in the usual sterile fashion. A rigid cystoscope was inserted into the urethral meatus and advanced into the bladder. The bladder was then thoroughly examined with both 30 and 70 degree lenses and of note, no bladder abnormalities were seen. Bilateral ureteral orifices were orthotopic. Clear urine effluxed from the left collecting system. I then advanced a guidewire up the right collecting system. I then advanced a ureteral access sheath up the right collecting system. I then went up the access sheath with a flexible ureteroscope and within the proximal ureter of note, the patient had a moderately narrow ureteral stricture which I could not advance the scope. A retrograde pyelogram was performed and not much contrast was able to get past the stricture. I then advanced a wire past the stricture and into the kidney. I then removed the ureteroscope and advanced a balloon in and dilated the stricture. I then let the balloon down, went back in with the ureteroscope and I was able to get past this level of stricture and approximately 2-3 cm proximal to that, there was another stricture right at the ureteropelvic junction. I then took the scope out again and advanced a balloon up to the level of the second stricture. The balloon was then dilated and left up for about a minute or two. The balloon was then let down and then I withdrew the balloon and went back in the ureteroscope at this point to get the scope all the way into the kidney. Once I was inside the kidney, it was thoroughly examined. Of note, there was a very large papillary mass growing out of a mid to lower pole calyx and into the renal pelvis. Several biopsies of this mass were obtained and sent for pathologic analysis. I also obtained a right renal pelvic washing to send for cytology. Once that was done, another retrograde pyelogram was performed. It was notable for the filling defect in the kidney and no extravasation. I then withdrew the ureteroscope along with the access sheath and then I utilized the wire to advance a #7 Wolof x 22-32 cm JJ ureteral stent up into the right collecting system. The wire was removed and there were adequate curls to the stent in the right renal pelvis and in the bladder. The bladder was then emptied of all fluids and this marked the conclusion of the procedure. The patient was then taken out of dorsal lithotomy position, awakened from anesthesia and transported to the recovery room in stable condition. ESTIMATED BLOOD LOSS: 5 mL. COMPLICATIONS: None. SPECIMENS: Right kidney biopsies, right renal pelvic washings for cytology. PLAN: The patient will followup in the clinic in a week or two to discuss pathology results. He will likely require, ultimately, if this is cancer, a nephroureterectomy for treatment. EMILY
== END 2019-03-20 17:55 | disposition home or self-care (01) ==
LOC: M SDC 10:48
PROVIDERS: ATTEND Urology
DX: C64.1 Malignant neoplasm of right kidney, except renal pelvis (principal); R31.0 Gross hematuria; N13.5 Crossing vessel and stricture of ureter without hydronephrosis; I10 Essential (primary) hypertension; J44.9 Chronic obstructive pulmonary disease, unspecified; E78.49 Other hyperlipidemia; E88.81 Metabolic syndrome and other insulin resistance; I48.0 Paroxysmal atrial fibrillation; I73.9 Peripheral vascular disease, unspecified; N40.0 Benign prostatic hyperplasia without lower urinary tract symptoms; M54.5 Low back pain; Z85.51 Personal history of malignant neoplasm of bladder; Z55.0 Illiteracy and low-level literacy; F17.210 Nicotine dependence, cigarettes, uncomplicated; Z88.0 Allergy status to penicillin; Z88.4 Allergy status to anesthetic agent; Z79.02 Long term (current) use of antithrombotics/antiplatelets; Z79.82 Long term (current) use of aspirin; Z79.899 Other long term (current) drug therapy
CPT/HCPCS: 52204; 52332; 52341; 74420; 88108; 88307; C1769; C1894; J1100; J1885; J1956; J2250; J2405; J3010; Q9961

== ENCOUNTER → 2019-04-09 | Outpatient (REF) | payer MEDICARE | LOC: M SMT 12:54 | PROVIDERS: ATTEND Urology | DX: R82.998 Other abnormal findings in urine (principal) ==

== ENCOUNTER → 2019-04-23 | Outpatient (REF) | payer MEDICARE ==
[2019-04-23 13:41] LABS: HEMATOCRIT 42.9 % (42.0-52.0); HEMOGLOBIN 13.7 g/dl (13.5-17.5); MEAN CORPUSCULAR HEMOGLOBIN 30.2 pg (27.0-33.0); MEAN CORPUSCULAR HGB CONC 31.9 g/dl (32.0-36.5); MEAN CORPUSCULAR VOLUME 94.7 fl (80.0-96.0); PLATELET COUNT, AUTOMATED 298 10^3/uL (150-450); RED BLOOD COUNT 4.53 10^6/uL (4.30-6.10); WHITE BLOOD COUNT 6.2 10^3/uL (4.0-10.0)
[2019-04-23 14:04] LABS: BLOOD UREA NITROGEN 10 MG/DL (7-18); CARBON DIOXIDE LEVEL 32 MEQ/L (21-32); CHLORIDE LEVEL 101 MEQ/L (98-107); CREATININE FOR GFR 0.85 MG/DL (0.70-1.30); GLOMERULAR FILTRATION RATE > 60.0 (>42); GLUCOSE, FASTING 88 MG/DL (70-100); POTASSIUM SERUM 3.9 MEQ/L (3.5-5.1); SODIUM LEVEL 137 MEQ/L (136-145)
== END ==
LOC: M LABDRWAD 12:31
PROVIDERS: ATTEND Urology
DX: Z01.818 Encounter for other preprocedural examination (principal); C80.1 Malignant (primary) neoplasm, unspecified

== ENCOUNTER → 2019-04-23 | Outpatient (REF) | payer MEDICARE ==
[~2019-04-23] MED LIST changes: +PERCOCET PO; +ZOFR4TAB16 PO
== END ==
LOC: M SMT 12:25
PROVIDERS: ATTEND Urology
DX: Z01.818 Encounter for other preprocedural examination (principal); C80.1 Malignant (primary) neoplasm, unspecified; N39.0 Urinary tract infection, site not specified
CPT/HCPCS: 36415; 80048; 85027; 87086; G0463

== ENCOUNTER 2019-05-05 06:11 | Inpatient (IN) | payer MEDICARE ==
[2019-05-05] VITALS (8 sets, daily range): BP systolic 169–180; BP diastolic 69–82
[~2019-05-05] VITALS: Ht 180.3 cm; Wt 74.8 kg
[~2019-05-05 06:11] MED LIST changes: +LIDOCAINE 1% MDV 20ML VIAL SQ PRN; -PERCOCET PO; -ZOFR4TAB16 PO
[2019-05-05] MEDS ORDERED: LR 1,000 ML IV ONE (07:00)
[2019-05-05] MEDS ORDERED: GENTAMICIN 80 MG in IV 1 EA IV ONE (07:00)
[2019-05-05] MEDS ORDERED: VANCOMYCIN HCL 1,000 MG, VIAL MATE ADAPTER 1 EACH in D5W 250 ML IV ONE (07:00)
[2019-05-05] MEDS ORDERED: ALBUTEROL SULFATE 2.5 MG/0.5 ML INH NEB SOLN As Ordered ONE (07:11)
[2019-05-05] MEDS ORDERED: BUPIVACAINE HCL 0.25% 30 ML VIAL As Ordered ONE (07:21)
[2019-05-05] MEDS ORDERED: LIDOCAINE 1% SDV INJ 30 ML VIAL As Ordered ONE (07:21)
[2019-05-05] MEDS ORDERED: ACETAMINOPHEN TAB 650MG DOSE (2X325MG) PO PRN (07:30)
[2019-05-05] MEDS ORDERED: MORPHINE 2 MG/ML 1ML VIAL (J2270) IV PRN (07:30)
[2019-05-05] MEDS: HEPARIN SOD (PORCINE) 5000 UNITS/ML VIAL SC SCH ×2 (07:40→22:27)
[2019-05-05] MEDS ORDERED: ALBUTEROL SULFATE 2.5 MG/0.5 ML INH NEB SOLN INH ONE (08:00)
[2019-05-05] MEDS ORDERED: HEPARIN SOD (PORCINE) 5000 UNITS/ML VIAL SQ ONE (08:00)
[2019-05-05] MEDS ORDERED: fentaNYL 250 MCG/5 ML INJECTION (J3010) As Ordered ONE (08:17)
[2019-05-05] MEDS ORDERED: ONDANSETRON 4MG/2ML VIAL (J2405) As Ordered ONE (08:17)
[2019-05-05] MEDS ORDERED: ROCURONIUM BROMIDE 50 MG/5 ML VIAL As Ordered ONE ×2 (08:17→13:56)
[2019-05-05] MEDS ORDERED: dexameTHASONE 4 MG/ML 1ML VIAL (J1100) As Ordered ONE (08:17)
[2019-05-05] MEDS ORDERED: LABETALOL HCL 100 MG/20 ML VIAL As Ordered ONE (08:17)
[2019-05-05] MEDS ORDERED: PROPOFOL 200 MG/20 ML VIAL As Ordered ONE (08:17)
[2019-05-05] MEDS ORDERED: LIDOCAINE 2% INJ 100 MG/5 ML SDV (FOR ANES.) As Ordered ONE (08:17)
[2019-05-05] MEDS ORDERED: HYDROmorphone HCL 2 MG/ML 1ML VIAL (J1170) As Ordered ONE (08:17)
[2019-05-05] MEDS ORDERED: SUGAMMADEX SODIUM 500 MG/5 ML VIAL (BRIDION) As Ordered ONE (08:17)
[2019-05-05] MEDS ORDERED: MIDAZOLAM INJ 2 MG/2 ML VIAL (J2250) As Ordered ONE (08:17)
[2019-05-05] MEDS ORDERED: METOCLOPRAMIDE INJ 10MG/2ML VIAL (J2765) As Ordered ONE (08:17)
[2019-05-05] MEDS ORDERED: ePHEDrine SULFATE 25 MG/5 ML(5MG/ML) SYRINGE As Ordered ONE ×2 (08:20→08:55)
[2019-05-05] MEDS ORDERED: ACETAMINOPHEN 1000MG 100ML IV BTL (OFIRMEV) (J0131 PER 10MG) As Ordered ONE (09:08)
[2019-05-05] MEDS ORDERED: VASOPRESSIN INJ 20 UNITS/ML VIAL As Ordered ONE (10:06)
[2019-05-05] MEDS ORDERED: DESFLURANE 240 ML INHALANT As Ordered ONE (11:53)
[2019-05-05] MEDS ORDERED: PHENYLephrine HCL 500 MCG/5 ML (100MCG/ML) SYRINGE (J2370) As Ordered ONE (12:05)
[2019-05-05] MEDS ORDERED: PHENYLEPHRINE INJ 10MG/ML VIAL (J2370) As Ordered ONE (13:05)
[2019-05-05] MEDS ORDERED: ALBUTEROL 6.7GM INHALER **FOR ANES. CART/OMNICELL ONLY As Ordered ONE (14:22)
[2019-05-05] MEDS ORDERED: fentaNYL 100 MCG/2 ML INJECTION (J3010) As Ordered ONE (14:53)
--- NOTE | 2019-05-05 15:28 | ROOPDOC ---
[facility] Report Of Operation Report of Operation DATE OF PROCEDURE: 05/05/19 PREPROCEDURE DIAGNOSES: Urothelial Carcinoma of the Right Kidney. POSTPROCEDURE DIAGNOSES: Urothelial Carcinoma of the Right Kidney. PROCEDURE: Right Robotic-assisted Laparoscopic Radical Nephroureterectomy with Bladder Cuff, Cystoscopy with Incision of the Right Ureteral Orifice. 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 Given the size of the tumor, it was recommended that he be brought to the operating room today for the above procedure. DESCRIPTION OF PROCEDURE: The patient was brought to the operating room and general anesthesia was induced. Prophylactic antibiotics were infused. The patient was then placed in the dorsal lithotomy position and prepped and draped in the usual sterile fashion. A resectoscope was inserted into the bladder and the previously placed right ureteral stent was seen. At this point a circumferential incision was made around the right ureteral orifice using a Mobley Knife. The incision was carried down through the muscle layer. Once this was done and hemstasis was established an 18Fr Winters catheter was placed and the balloon was inflated with 10cc of sterile water. The catheter was then placed to gravity drainage. The patient was then taken out of the dorsal lithotomy position. He was then repositioned in the left lateral decubitus position. All pressure points were appropriately padded and an axillary roll was placed. He was secured to the table with tape. The patient was then prepped and draped in the usual sterile fashion. The initial incision was for an 8mm port in line with the 11th rib along the lateral rectus margin. A Veress needle was then utilized to achieve the pneumoperitoneum. An 8mm port was then placed in through this incision and through which the camera was inserted. There were no injuries from Veress needle placement or initial trocar placement. The remaining ports were then placed under vision. The right hand robotic port was placed along the costal margin. Another 5 mm port was placed just inferior to the xyphoid for access for a liver retractor. A 12mm robotic port was placed just inferior to the camera port, also on the lateral rectus margin. The left hand robotic port was placed between the anterior-superior iliac spine and the umbilicus. A 15mm emergency veterinary assistant port was placed inferior and medial to the camera port. The robot was then docked. We began by lifting up the liver with a laparoscopic locking Allis clamp. Next the right colon was dissected off of Gerota's fascia. We then Kocherized the duodenum. At this point the inferior vena cava (IVC) was identified. A plane was made onto the lateral aspect of the IVC. Of note, two renal veins were identified. One artery was identified just cephalad to the larger vein. The artery was carefully dissected and then ligated with Weck clips. It was then transected, leaving 2 Weck clips on the stay side and 1 on the kidney side. Next, a robotic 45mm stapler was utilized to ligate and transect the larger of the right renal veins. The smaller renal vein was ligated Weck clips and then transected. Once the hilum was taken, a plane onto the upper pole of the kidney was created and the right adrenal gland was mobilized off of the kidney. The kidney was then carefully dissected on all sides until it was only connected by the right ureter. While dissecting the kidney a moderate sized pericaval lymph node was encountered. It was dissected and sent off for pathologic analysis. The right ureter was then dissected down to the level of the bladder. The bladder was then opened at the right ureterovesical junction and the distal right ureter was released from the bladder with a bladder cuff. The previously placed stent was taken out with the kidney and ureter. The right kidney and ureter were then placed in a large Endocatch bag for future retrieval. We then checked for hemostasis and it appeared excellent. Shaista hemostatic agent was then placed in the nephrectomy bed. At this point a Ranjit Bone drain was brought in through one of the robotic port sites and the distal end of it was placed in the pelvis near the bladder. Once satisfied with hemostasis, the robot was undocked. We then used a Chintan-Kesha fascial closure device to place a #0 Vicryl free tie through the fascia of the 15 mm camera port site. We then extended one of the left hand robotic port site incisions. We then dissected down to the fascia. The fascia was then extended using electrocautery. The muscle was bluntly spread. The specimen was then extracted through this incision. It was handed off the table to send for pathology. We then closed the extraction incision using a running #0 Vicryl suture. At this point, the abdomen was reinsufflated and we looked back in with the camera and there was no bleeding underneath the extraction site. No abdominal contents were caught within the closure either. We then removed all the ports under direct vision and there was no bleeding from any of the port sites. At this point, the previously placed #0 Vicryl free tie was tied down and all the incisions were thoroughly irrigated. The drain was secured to the skin with #2-0 Ethilon suture. We then closed the skin of each site using a running #4-0 subcuticular Monocryl stitch. Local anesthetic was then applied to each incision and Dermabond was then applied and this marked the conclusion of the procedure. The patient was then taken out of the left lateral decubitus position, awakened from anesthesia and transported to the recovery room in stable condition. ESTIMATED BLOOD LOSS: 50 mL INTRAOPERATIVE COMPLICATIONS: None SPECIMENS: Right kidney and ureter with bladder cuff, pericaval lymph node. PLAN: The patient will be admitted to the hospital postoperatively and he will be discharged home once his renal function is stable and he is tolerating a regular diet. SHAI ALMENDAREZ MD May 05, 2019 15:28
[2019-05-05 15:38] LABS: HEMATOCRIT 32.8 % (42.0-52.0); HEMOGLOBIN 10.6 g/dl (13.5-17.5); MEAN CORPUSCULAR HEMOGLOBIN 30.8 pg (27.0-33.0); MEAN CORPUSCULAR HGB CONC 32.3 g/dl (32.0-36.5); MEAN CORPUSCULAR VOLUME 95.3 fl (80.0-96.0); PLATELET COUNT, AUTOMATED 145 10^3/uL (150-450); RED BLOOD COUNT 3.44 10^6/uL (4.30-6.10); WHITE BLOOD COUNT 8.2 10^3/uL (4.0-10.0)
[2019-05-05 15:57] LABS: CALCIUM LEVEL 7.1 MG/DL (8.8-10.2); CREATININE FOR GFR 1.37 MG/DL (0.70-1.30); GLOMERULAR FILTRATION RATE 54.1 (>42); POTASSIUM SERUM 3.7 MEQ/L (3.5-5.1)
[2019-05-05] MEDS: DOCUSATE SODIUM 100 MG CAP PO SCH ×2 (18:01→22:11)
[2019-05-05] MEDS: NS 1,000 ML IV SCH ×2 (18:08→21:20)
[2019-05-05] MEDS: GENTAMICIN 80 MG in IV 1 EA IV SCH (18:08)
[2019-05-05] MEDS ORDERED: rOPINIRole 2MG TAB PO SCH (21:00)
[2019-05-05] MEDS: ATORVASTATIN 20 MG TAB PO SCH (22:11)
[2019-05-05] MEDS: rOPINIRole 1MG TAB PO SCH (22:26)
[2019-05-06] MEDS: GENTAMICIN 80 MG in IV 1 EA IV SCH (00:45)
[2019-05-06] MEDS: PERCOCET 5MG/325MG TAB PO PRN ×4 (01:11→20:55)
[2019-05-06 01:30] VITALS: BP 160/68
[2019-05-06] MEDS: HEPARIN SOD (PORCINE) 5000 UNITS/ML VIAL SC SCH ×3 (05:28→20:54)
[2019-05-06 05:30] VITALS: BP 141/65
[2019-05-06 06:00] LABS: MEAN CORPUSCULAR HEMOGLOBIN 30.6 pg (27.0-33.0); MEAN CORPUSCULAR HGB CONC 33.3 g/dl (32.0-36.5); MEAN CORPUSCULAR VOLUME 91.8 fl (80.0-96.0); PLATELET COUNT, AUTOMATED 133 10^3/uL (150-450); RED BLOOD COUNT 3.92 10^6/uL (4.30-6.10); WHITE BLOOD COUNT 8.6 10^3/uL (4.0-10.0)
[2019-05-06] MEDS: NS 1,000 ML IV SCH (06:03)
[2019-05-06 06:25] LABS: CALCIUM LEVEL 8.6 MG/DL (8.8-10.2); CREATININE FOR GFR 1.79 MG/DL (0.70-1.30); GLOMERULAR FILTRATION RATE 39.7 (>42); POTASSIUM SERUM 4.3 MEQ/L (3.5-5.1)
--- NOTE | 2019-05-06 07:33 | IPNPDOC ---
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 Events since Last Encounter No acute events o/n. Good pain control. Tolerating clears. No n/v. No f/c/ns. Objective Physical Examination General Exam: Alert, Cooperative, No Acute Distress ABDOMEN EXAM: Soft, Other (incisions clean/dry/intact; SARA w/ serous output); No: Tenderness Psych Exam: Mental status NL, Mood NL Other physical findings catheter draining clear urine Vital Signs/I&O Vital Signs Date Time Temp Pulse Resp B/P (MAP) Pulse Ox O2 Delivery O2 Flow Rate FiO2 05/06/19 05:30 98.1 83 25 141/65 (90) 90 Room Air 05/05/19 19:12 1.0 I&O- Last 24 Hours up to 6 AM 05/06/19 06:00 Intake Total 4990 ml Output Total 810 ml Balance 4180 ml Laboratory Data Labs 24H Laboratory Tests 2 05/05/19 12:40: POC pH (Misc Panel) 7.310L, POC Base Excess (Misc Panel) 2.0, POC Saturated Percent O2 (Misc) 100H, POC pO2 (Misc Panel) 201.0H, POC pCO2 (Misc Panel) 57.1H, POC HCO3 (Misc Panel) 28.7H, POC Glucose (Misc Panel) 175H, POC Sodium (Misc Panel) 135L, POC Potassium (Misc Panel) 4.2, POC Total CO2 (Misc Panel) 30.0H, POC Ionized Calcium (Misc Panel) 4.5, POC Hemoglobin (Calculated)(Misc) 10.9L, POC Hematocrit (Misc Panel) 32.0L 05/05/19 13:37: POC pH (Misc Panel) 7.338L, POC Base Excess (Misc Panel) 1.0, POC Saturated Percent O2 (Misc) 100H, POC pO2 (Misc Panel) 204.0H, POC pCO2 (Misc Panel) 50.0H, POC HCO3 (Misc Panel) 26.8H, POC Glucose (Misc Panel) 170H, POC Sodium (Misc Panel) 136, POC Potassium (Misc Panel) 4.1, POC Total CO2 (Misc Panel) 28.0H, POC Ionized Calcium (Misc Panel) 4.6, POC Hemoglobin (Calculated)(Misc) 10.9L, POC Hematocrit (Misc Panel) 32.0L 05/05/19 15:21: Nucleated Red Blood Cells % (auto) 0.0, Anion Gap 7L, Glomerular Filtration Rate 54.1, Calcium Level 7.1L 05/06/19 05:21: Nucleated Red Blood Cells % (auto) 0.0, Anion Gap 7L, Glomerular Filtration Rate 39.7L, Calcium Level 8.6#L CBC/BMP Laboratory Tests 05/05/19 15:21 05/06/19 05:21 Assessment/Plan Date Seen The patient was seen on 05/06/19. Patient Summary This is a 73 y/o M POD 1 s/p R robotic nephroureterectomy. He is doing well. Good UOP. SARA having relatively high output. Cr up to 1.8. Hb stable. Plan/VTE VTE Prophylaxis Ordered?: Yes VTE Exclusion Mechanical Proph: N/A:VTE Prophy Ordered Plan/Urinary Catheter Urinary Catheter: Other Catheter: (will plan to keep catheter in for 2 wks to allow time for the bladder to heal) Plan - d/c IVF - percocet prn pain - cont home meds - strict I/Os - SCDs when in bed - SQH - incentive spirometry - ambulate - advance diet as tolerated SHAI ALMENDAREZ MD May 06, 2019 07:33
[2019-05-06] MEDS: DOCUSATE SODIUM 100 MG CAP PO SCH ×2 (08:56→20:55)
[2019-05-06] MEDS: LISINOPRIL 40 MG TAB PO SCH (08:56)
[2019-05-06] MEDS: hydroCHLOROthiazide 25 MG TAB PO SCH (08:56)
[2019-05-06] MEDS: ONDANSETRON 4MG/2ML VIAL (J2405) IV PRN ×2 (09:59→21:02)
[2019-05-06 10:00] VITALS: BP 128/55
[2019-05-06 14:00] VITALS: BP 134/63
[2019-05-06] MEDS: rOPINIRole 1MG TAB PO SCH (20:55)
[2019-05-06] MEDS: ATORVASTATIN 20 MG TAB PO SCH (20:55)
[2019-05-06 22:00] VITALS: BP 146/60
[2019-05-07 05:59] LABS: HEMATOCRIT 33.9 % (42.0-52.0); HEMOGLOBIN 11.4 g/dl (13.5-17.5); MEAN CORPUSCULAR HEMOGLOBIN 31.1 pg (27.0-33.0); MEAN CORPUSCULAR HGB CONC 33.6 g/dl (32.0-36.5); MEAN CORPUSCULAR VOLUME 92.4 fl (80.0-96.0); PLATELET COUNT, AUTOMATED 103 10^3/uL (150-450); RED BLOOD COUNT 3.67 10^6/uL (4.30-6.10); WHITE BLOOD COUNT 8.8 10^3/uL (4.0-10.0)
[2019-05-07 06:00] VITALS: BP 139/84
[2019-05-07 06:24] LABS: CALCIUM LEVEL 8.2 MG/DL (8.8-10.2); CREATININE FOR GFR 1.7 MG/DL (0.70-1.30); GLOMERULAR FILTRATION RATE 42.2 (>42); POTASSIUM SERUM 3.6 MEQ/L (3.5-5.1)
[2019-05-07] MEDS: PERCOCET 5MG/325MG TAB PO PRN ×2 (06:27→14:39)
[2019-05-07] MEDS: HEPARIN SOD (PORCINE) 5000 UNITS/ML VIAL SC SCH ×2 (06:28→14:00)
--- NOTE | 2019-05-07 08:03 | IPNPDOC ---
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 Events since Last Encounter No acute events o/n. Good pain control. Ambulated well yesterday. Tolerating diet. No f/c/ns. Objective Physical Examination General Exam: Alert, Cooperative, No Acute Distress ABDOMEN EXAM: Soft, Other (incisions clean/dry/intact; SARA w/ serous output); No: Tenderness Skin Exam: Nl turgor and temperature Psych Exam: Mental status NL, Mood NL Other physical findings catheter draining clear urine Vital Signs/I&O Vital Signs Date Time Temp Pulse Resp B/P (MAP) Pulse Ox O2 Delivery O2 Flow Rate FiO2 05/07/19 06:57 21 05/07/19 06:27 98.0 98 146/60 88 Room Air 05/05/19 19:12 1.0 I&O- Last 24 Hours up to 6 AM 05/07/19 06:00 Intake Total 1237 ml Output Total 2950 ml Balance -1713 ml Laboratory Data Labs 24H Laboratory Tests 2 05/07/19 05:36: Nucleated Red Blood Cells % (auto) 0.0, Anion Gap 6L, Glomerular Filtration Rate 42.2, Calcium Level 8.2L CBC/BMP Laboratory Tests 05/07/19 05:36 Assessment/Plan Date Seen The patient was seen on 05/07/19. Patient Summary This is a 73 y/o M POD2 s/p right robotic nephroureterectomy. He is doing well. Cr is stable at 1.7. Good UOP. SARA w/ 380cc out yesterday. Plan/VTE VTE Prophylaxis Ordered?: Yes VTE Exclusion Mechanical Proph: N/A:VTE Prophy Ordered Plan/Urinary Catheter Urinary Catheter: Other Catheter: (will plan to keep catheter in for 2 wks to allow time for the bladder to heal) Plan - ambulate - percocet prn pain - cont home meds - strict I/Os - SCDs when in bed - SQH - incentive spirometry - possible discharge home later today w/ Winters catheter and SARA drain SHAI ALMENDAREZ MD May 07, 2019 08:03
[2019-05-07] MEDS: LISINOPRIL 40 MG TAB PO SCH (08:49)
[2019-05-07] MEDS: hydroCHLOROthiazide 25 MG TAB PO SCH (08:49)
[2019-05-07] MEDS: DOCUSATE SODIUM 100 MG CAP PO SCH (08:49)
[2019-05-07 14:00] VITALS: BP 165/72
[2019-05-07] MEDS ORDERED: PERCOCET PO (14:52)
[2019-05-07] MEDS ORDERED: BACT800T5 PO (14:52)
[2019-05-07] MEDS ORDERED: ZOFR4TAB16 PO (16:59)
--- NOTE | 2019-05-08 18:17 | DSES ---
DATE OF ADMISSION: 05/05/2019 DATE OF DISCHARGE: 05/07/2019 ADMISSION DIAGNOSIS: Urothelial carcinoma of right kidney. DISCHARGE DIAGNOSIS: Urothelial carcinoma of right kidney. ADMITTING PHYSICIAN: Dr. George Thompson DISCHARGING PHYSICIAN: Dr. George Thompson PROCEDURE PERFORMED: A right robotic-assisted laparoscopic nephroureterectomy on 05/05/2019. HISTORY OF PRESENT ILLNESS: This is a 73-year-old male who was admitted to the hospital after undergoing above-listed procedure. HOSPITALIZATION COURSE: The patient was admitted to the hospital after undergoing the above-listed procedure for urothelial carcinoma of the right kidney. His postoperative course was unremarkable. On postoperative day #1, he did have a moderate amount of pain. His pain improved by postoperative day #2. Throughout his hospital stay, his hemoglobin level was stable. His creatinine stabilized at 1.7 by postoperative day #2. He had excellent urine output throughout his hospital stay. He did have high output from his Ranjit-Bone drain throughout his hospital stay. He was ambulating well by postoperative day #2 and tolerating a regular diet. His pain was much better controlled. He was therefore deemed ready for discharge home on postoperative day #2. He was discharged home with his catheter in place and his Ranjit-Bone drain with the plan for him to followup in clinic in approximately 10 days for pathology results. We will get a cystogram prior to removing his catheter and will remove his catheter and his Ranjit-Bone drain at his followup appointment as well. EMILY
== END 2019-05-07 16:45 | disposition home or self-care (01) | DRG 658 ==
LOC: M OR 06:11 → M MSPAV 16:06
PROVIDERS: ADMIT Urology; ATTEND Urology
PROC: 07BC4ZX Excision of Pelvis Lymphatic, Percutaneous Endoscopic Approach, Diagnostic (ICD-10-PCS; 2019-05-05)
PROC: 8E0W4CZ Robotic Assisted Procedure of Trunk Region, Percutaneous Endoscopic Approach (ICD-10-PCS; 2019-05-05)
PROC: 0TB04ZZ Excision of Right Kidney, Percutaneous Endoscopic Approach (ICD-10-PCS; principal; 2019-05-05 07:30)
PROC: 0TB64ZZ Excision of Right Ureter, Percutaneous Endoscopic Approach (ICD-10-PCS; 2019-05-05 07:30)
DX: C65.1 Malignant neoplasm of right renal pelvis (principal); I10 Essential (primary) hypertension; E78.5 Hyperlipidemia, unspecified; Z85.51 Personal history of malignant neoplasm of bladder; E88.81 Metabolic syndrome and other insulin resistance; M48.061 Spinal stenosis, lumbar region without neurogenic claudication; I48.0 Paroxysmal atrial fibrillation; F17.210 Nicotine dependence, cigarettes, uncomplicated; K59.00 Constipation, unspecified; J44.9 Chronic obstructive pulmonary disease, unspecified; Z88.0 Allergy status to penicillin; Z88.4 Allergy status to anesthetic agent; Z79.82 Long term (current) use of aspirin; Z79.02 Long term (current) use of antithrombotics/antiplatelets; Z79.899 Other long term (current) drug therapy

== ENCOUNTER → 2019-05-08 | Outpatient (REF) | payer MEDICARE ==
[~2019-05-08] MED LIST changes: -LIDOCAINE 1% MDV 20ML VIAL SQ PRN; +PERCOCET PO; +ZOFR4TAB16 PO
[2019-05-08 13:35] LABS: CREATININE BF 1.6 MG/DL (NOT ESTABLISHED); SOURCE, BODY FLUID CREATININE OTHER
== END ==
LOC: M SMT 12:52
PROVIDERS: ATTEND Urology
DX: R32 Unspecified urinary incontinence (principal)

== ENCOUNTER → 2019-05-22 | Outpatient (REF) | payer MEDICARE ==
[2019-05-22 12:20] LABS: HEMATOCRIT 37.4 % (42.0-52.0); HEMOGLOBIN 12.4 g/dl (13.5-17.5); MEAN CORPUSCULAR HEMOGLOBIN 30.6 pg (27.0-33.0); MEAN CORPUSCULAR HGB CONC 33.2 g/dl (32.0-36.5); MEAN CORPUSCULAR VOLUME 92.3 fl (80.0-96.0); PLATELET COUNT, AUTOMATED 375 10^3/uL (150-450); RED BLOOD COUNT 4.05 10^6/uL (4.30-6.10); WHITE BLOOD COUNT 6.1 10^3/uL (4.0-10.0)
[2019-05-22 12:34] LABS: CALCIUM LEVEL 9.1 MG/DL (8.8-10.2); CREATININE FOR GFR 1.64 MG/DL (0.70-1.30); GLOMERULAR FILTRATION RATE 43.9 (>42); POTASSIUM SERUM 4.5 MEQ/L (3.5-5.1)
== END ==
LOC: M SMT 11:41
PROVIDERS: ATTEND Urology
DX: C80.1 Malignant (primary) neoplasm, unspecified (principal); Z90.5 Acquired absence of kidney

== ENCOUNTER → 2019-06-25 | Outpatient (REF) | payer MEDICARE ==
[2019-06-25 19:34] LABS: ALBUMIN 3.1 GM/DL (3.2-5.2); CALCIUM LEVEL 8.6 MG/DL (8.8-10.2); CREATININE FOR GFR 1.26 MG/DL (0.70-1.30); GLOMERULAR FILTRATION RATE 59.6 (>42); MAGNESIUM LEVEL 1.8 MG/DL (1.8-2.4); PHOSPHORUS LEVEL 3.2 MG/DL (2.5-4.9); POTASSIUM SERUM 4.2 MEQ/L (3.5-5.1); URIC ACID 4.9 MG/DL (3.5-7.2)
== END ==
LOC: M LAB REF 17:30
PROVIDERS: ATTEND Internal Medicine Nephrology
DX: N18.3 Chronic kidney disease, stage 3 (moderate) (principal); I12.9 Hypertensive chronic kidney disease with stage 1 through stage 4 chronic kidney disease, or unspecified chronic kidney disease; Z90.5 Acquired absence of kidney

== ENCOUNTER → 2019-09-28 | Outpatient (REF) | payer MEDICARE ==
[~2019-09-28] MED LIST changes: +CYCL-707 PO; -CYCL10TA PO; +ROPI0.5T3 PO
== END ==
LOC: M SMT 13:11
PROVIDERS: ATTEND Urology
DX: C67.9 Malignant neoplasm of bladder, unspecified (principal); C80.1 Malignant (primary) neoplasm, unspecified

== ENCOUNTER → 2019-12-07 | Outpatient (REF) | payer MEDICARE | LOC: M LABDRWAD 12:35 | PROVIDERS: ATTEND Urology | DX: Z12.5 Encounter for screening for malignant neoplasm of prostate (principal) ==

== ENCOUNTER → 2019-12-28 | Outpatient (REF) | payer MEDICARE | LOC: M SMT 11:52 | PROVIDERS: ATTEND Urology | DX: C80.1 Malignant (primary) neoplasm, unspecified (principal); Z85.51 Personal history of malignant neoplasm of bladder ==

== ENCOUNTER → 2020-04-04 | Outpatient (REF) | payer MEDICARE | LOC: M SMT 13:32 | PROVIDERS: ATTEND Urology | DX: C80.1 Malignant (primary) neoplasm, unspecified (principal) ==

== ENCOUNTER → 2020-07-27 | Outpatient (REF) | payer MEDICARE ==
[~2020-07-27] MED LIST changes: +HYDR-3490 PO; -HYDR25TAB PO; -LISI40TA PO; +LISI40TA4 PO
[2020-07-27 12:46] LABS: HEMATOCRIT 40.5 % (42.0-52.0); HEMOGLOBIN 13.4 g/dl (13.5-17.5); MEAN CORPUSCULAR HEMOGLOBIN 31.8 pg (27.0-33.0); MEAN CORPUSCULAR HGB CONC 33.1 g/dl (32.0-36.5); PLATELET COUNT, AUTOMATED 178 10^3/uL (150-450); RED BLOOD COUNT 4.22 10^6/uL (4.30-6.10); WHITE BLOOD COUNT 7.2 10^3/uL (4.0-10.0)
[2020-07-27 13:12] LABS: ALBUMIN 3.5 GM/DL (3.2-5.2); ALT/SGPT 16 U/L (12-78); BILIRUBIN,TOTAL 0.3 MG/DL (0.2-1.0); BLOOD UREA NITROGEN 17 MG/DL (7-18); CALCIUM LEVEL 9.1 MG/DL (8.8-10.2); CARBON DIOXIDE LEVEL 32 MEQ/L (21-32); CHLORIDE LEVEL 104 MEQ/L (98-107); CHOLESTEROL LEVEL 107 MG/DL (<200); CHOLESTEROL RISK RATIO 1.754 (<5); CREATININE FOR GFR 1.14 MG/DL (0.70-1.30); GLOMERULAR FILTRATION RATE > 60.0 (>42); GLUCOSE, FASTING 97 MG/DL (70-100); HDL CHOLESTEROL 61 MG/DL (>40); LDL CHOLESTEROL 29 MG/DL (<100); NON-HDL-C 46 MG/DL; POTASSIUM SERUM 4.2 MEQ/L (3.5-5.1); SODIUM LEVEL 142 MEQ/L (136-145); TOTAL PROTEIN 6.6 GM/DL (6.4-8.2); TRIGLYCERIDES LEVEL 83 MG/DL (<150)
== END ==
LOC: M SFHCADAM 10:39
PROVIDERS: ATTEND Family Medicine
DX: N18.30 Chronic kidney disease, stage 3 unspecified (principal); I11.9 Hypertensive heart disease without heart failure; E78.2 Mixed hyperlipidemia
CPT/HCPCS: 80053; 80061; 85027; G0463

== ENCOUNTER → 2020-08-15 | Outpatient (REF) | payer MEDICARE ==
[2020-08-15 14:40] LABS: APPEARANCE, URINE CLEAR (CLEAR); BACTERIA, URINE AUTO NEGATIVE (NEGATIVE); BILIRUBIN, URINE AUTO NEGATIVE (NEGATIVE); BLOOD, URINE BLOOD 1+ (NEGATIVE); COLOR, URINE YELLOW (YELLOW); GLUCOSE, URINE (UA) AUTO NEGATIVE (NEGATIVE); KETONE, URINE AUTO NEGATIVE (NEGATIVE); LEUKOCYTE ESTERASE, URINE AUTO NEGATIVE (NEGATIVE); MUCUS, URINE SMALL (NEGATIVE); NITRITE, URINE AUTO NEGATIVE (NEGATIVE); PROTEIN, URINE AUTO NEGATIVE (NEGATIVE); RBC, URINE AUTO 8 /HPF (0-3); SPECIFIC GRAVITY URINE AUTO 1.016 (1.002-1.035); SQUAMOUS EPITHELIAL CELL UR AU 0 /HPF (0-6); UROBILINOGEN, URINE AUTO 0.2 mg/dL (0.0-2.0); WBC, URINE AUTO 1 /HPF (0-3)
== END ==
LOC: M SMT 12:59
PROVIDERS: ATTEND Nurse Practitioner Family
DX: N39.0 Urinary tract infection, site not specified (principal)

== ENCOUNTER → 2020-08-22 | Outpatient (REF) | payer MEDICARE | LOC: M SMT 14:51 | PROVIDERS: ATTEND Urology | DX: C80.1 Malignant (primary) neoplasm, unspecified (principal) ==

== ENCOUNTER 2020-09-08 16:56 | Emergency (ER) | payer MEDICARE ==
[~2020-09-08] VITALS: Ht 180.3 cm; Wt 74.5 kg
[2020-09-08] MEDS ORDERED: LISI30TA4 (17:15)
[2020-09-08] MEDS ORDERED: CLOP75TA2 (17:15)
[2020-09-08] MEDS ORDERED: CARV3.12 (17:15)
[2020-09-08] MEDS ORDERED: POTA1TAB14 (17:15)
--- NOTE | 2020-09-08 17:30 | REP ---
INDICATION: trauma COMPARISON: None. TECHNIQUE: Four views right knee. FINDINGS: There is no evidence of acute fracture, dislocation, or intrinsic bone disease.There is mild medial joint space narrowing and subchondral sclerosis. There is mild diffuse chondrocalcinosis. There is no radiographic evidence of a joint effusion. There are diffuse vascular calcifications posteriorly. IMPRESSION: No fracture or dislocation. Mild degenerative changes. <Electronically signed by Félix Reina > 09/08/20 [id number]
--- NOTE | 2020-09-08 17:34 | REP ---
INDICATION: trauma COMPARISON: None. TECHNIQUE: Four views right wrist. FINDINGS: There is nondisplaced fracture of the radial styloid process. A calcific density dorsal to the carpal bones appears relatively smoothly marginated and may represent an old triquetral fracture. IMPRESSION: Nondisplaced fracture radial styloid process. <Electronically signed by Félix Reina > 09/08/20 [id number]
[2020-09-08] MEDS ORDERED: ACETAMINOPHEN 325 MG TAB PO ONE (18:25)
[2020-09-08] MEDS ORDERED: KETOROLAC TROMETHAMINE 10 MG TAB PO ONE (18:25)
[2020-09-08 19:41] VITALS: BP 180/78
== END 2020-09-08 19:42 | disposition home or self-care (01) ==
LOC: M ED 16:56
DX: S52.514A Nondisplaced fracture of right radial styloid process, initial encounter for closed fracture (principal); W18.30XA Fall on same level, unspecified, initial encounter; Y92.098 Other place in other non-institutional residence as the place of occurrence of the external cause; Y93.01 Activity, walking, marching and hiking; Y99.8 Other external cause status; Z99.89 Dependence on other enabling machines and devices; I10 Essential (primary) hypertension; Z86.73 Personal history of transient ischemic attack (TIA), and cerebral infarction without residual deficits; J44.9 Chronic obstructive pulmonary disease, unspecified; Z90.5 Acquired absence of kidney; Z85.51 Personal history of malignant neoplasm of bladder; Z80.52 Family history of malignant neoplasm of bladder; F17.200 Nicotine dependence, unspecified, uncomplicated; Z88.0 Allergy status to penicillin; Z88.4 Allergy status to anesthetic agent; Z79.899 Other long term (current) drug therapy; Z79.02 Long term (current) use of antithrombotics/antiplatelets; Z79.82 Long term (current) use of aspirin

== ENCOUNTER → 2020-09-16 | Outpatient (CLI) | payer MEDICARE ==
[~2020-09-16] MED LIST changes: +CARV3.12; +LISI30TA4; +POTA1TAB14
--- NOTE | 2020-09-16 09:55 | REP ---
INDICATION: F/U FX. COMPARISON: 09/08/2020 TECHNIQUE: AP and lateral views of the right wrist. FINDINGS: Evaluation is limited due to overlying cast material. Nondisplaced fracture of the distal radius/radial styloid is poorly evaluated, but no obvious acute changes are appreciated. IMPRESSION: Limited examination. As above. <Electronically signed by Nnamdi Hamilton > 09/16/20 [id number]
== END ==
LOC: M SOG 09-15 08:35
PROVIDERS: ATTEND Family Medicine
DX: S52.514D Nondisplaced fracture of right radial styloid process, subsequent encounter for closed fracture with routine healing (principal); X58.XXXD Exposure to other specified factors, subsequent encounter

== ENCOUNTER → 2020-10-14 | Outpatient (CLI) | payer MEDICARE ==
--- NOTE | 2020-10-14 09:08 | REP ---
INDICATION: F/U FX. COMPARISON: 09/16/2020. TECHNIQUE: Two views right wrist. FINDINGS: There is evidence of healing of the previously noted radial styloid fracture, with filling in of the lucent fracture line with a healing callus. No new fracture or dislocation is seen. Rounded calcification is again seen posterior to the carpal bones. IMPRESSION: Healing radial styloid fracture, well aligned. <Electronically signed by Félix Reina > 10/14/20 0923
== END ==
LOC: M SOG 08:08
PROVIDERS: ATTEND Orthopaedic Surgery Adult Reconstructive Orthopaedic Surgery
DX: S52.514A Nondisplaced fracture of right radial styloid process, initial encounter for closed fracture (principal); W18.30XA Fall on same level, unspecified, initial encounter; Y92.009 Unspecified place in unspecified non-institutional (private) residence as the place of occurrence of the external cause

== ENCOUNTER → 2020-11-28 | Outpatient (REF) | payer MEDICARE | LOC: M SMT 13:07 | PROVIDERS: ATTEND Urology | DX: C80.1 Malignant (primary) neoplasm, unspecified (principal); N39.41 Urge incontinence ==

== ENCOUNTER → 2021-03-13 | Outpatient (REF) | payer MEDICARE | LOC: M SMT 16:54 | PROVIDERS: ATTEND Urology | DX: C80.1 Malignant (primary) neoplasm, unspecified (principal) ==

== ENCOUNTER → 2021-04-20 | Outpatient (REF) | payer MEDICARE ==
[2021-04-20 19:32] LABS: BASO # 0.1 10^3/uL (0.0-0.2); BASO % 0.7 % (0.0-1.0); EOS # 0.5 10^3/uL (0.0-0.5); HEMATOCRIT 45.3 % (42.0-52.0); HEMOGLOBIN 14.7 g/dl (13.5-17.5); LYMPH # 1.9 10^3/uL (1.5-5.0); MEAN CORPUSCULAR HEMOGLOBIN 31.3 pg (27.0-33.0); MEAN CORPUSCULAR HGB CONC 32.5 g/dl (32.0-36.5); MEAN CORPUSCULAR VOLUME 96.4 fl (80.0-96.0); MONO # 0.7 10^3/uL (0.0-0.8); MONO % 7.4 % (2.0-8.0); NEUTROPHILS # 6.4 10^3/uL (1.5-8.5); NEUTROPHILS % 66.6 % (36.0-66.0); PLATELET COUNT, AUTOMATED 214 10^3/uL (150-450); WHITE BLOOD COUNT 9.6 10^3/uL (4.0-10.0)
[2021-04-20 20:08] LABS: ALBUMIN 3.5 GM/DL (3.2-5.2); ALT/SGPT 16 U/L (12-78); BILIRUBIN,TOTAL 0.7 MG/DL (0.2-1.0); BLOOD UREA NITROGEN 15 MG/DL (7-18); CALCIUM LEVEL 9.1 MG/DL (8.8-10.2); CARBON DIOXIDE LEVEL 30 MEQ/L (21-32); CHLORIDE LEVEL 102 MEQ/L (98-107); CREATININE FOR GFR 1.21 MG/DL (0.70-1.30); FOLATE 8.9 NG/ML; FREE T4 1.05 NG/DL (0.76-1.46); GLOMERULAR FILTRATION RATE > 60.0 (>42); GLUCOSE, FASTING 73 MG/DL (70-100); POTASSIUM SERUM 4.1 MEQ/L (3.5-5.1); SODIUM LEVEL 139 MEQ/L (136-145); TOTAL PROTEIN 7.3 GM/DL (6.4-8.2); VITAMIN B12 LEVEL 316 PG/ML
== END ==
LOC: M SFHCADAM 15:52
PROVIDERS: ATTEND Physician Assistant
DX: R06.00 Dyspnea, unspecified (principal); R63.5 Abnormal weight gain; R29.898 Other symptoms and signs involving the musculoskeletal system

== ENCOUNTER → 2021-04-20 | Outpatient (CLI) | payer MEDICARE ==
--- NOTE | 2021-04-20 16:22 | REP ---
INDICATION: SÁNCHEZ, WEAKNESS IF BOTH LOWER EXTREMITY. COMPARISON: 02/23/2019 the latest prior TECHNIQUE: PA and lateral FINDINGS: The superior mediastinal structures are midline. The cardiac silhouette is unremarkable in size, shape, and position. The diaphragmatic surfaces of the lungs are regular, and the costophrenic angles are clear. The pulmonary saravia are hyperexpanded but clear. The imaged osseous structures are intact. IMPRESSION: There is no acute cardiopulmonary disease. No significant change from the prior exam. <Electronically signed by Prashant Moss > 04/20/21 [id number]
== END ==
LOC: M ADAMS 15:54
PROVIDERS: ATTEND Physician Assistant
DX: R06.00 Dyspnea, unspecified (principal); R29.898 Other symptoms and signs involving the musculoskeletal system; R63.5 Abnormal weight gain

== ENCOUNTER → 2021-05-22 | Outpatient (CLI) | payer MEDICARE ==
--- NOTE | 2021-05-22 10:19 | REP ---
INDICATION: SÁNCHEZ,CHRONIC OBSTRUCTIVE PULMONARY DISEASE COMPARISON: 11/29/2014 TECHNIQUE: Axial noncontrast images from the thoracic inlet to the upper abdomen with coronal and sagittal reformations. This CT examination was performed using the following dose reduction techniques: Automated exposure control, adjustment of mA and/or kv according to the patient's size, and use of iterative reconstruction technique. FINDINGS: Mild chronic age-related interstitial changes and mild emphysematous changes with subtle bronchiectasis noted. No acute consolidation no suspicious nodule or mass lesion. No effusion. No pneumothorax. No significant adenopathy noted. Atherosclerotic changes to the thoracic aorta and coronary arteries noted without aortic aneurysm or cardiomegaly. No pericardial effusion. Small hiatal hernia suggested. Limited upper abdomen demonstrates atherosclerotic changes along with renovascular calcifications and 2 mm nonobstructing left renal calculi. IMPRESSION: Mild chronic interstitial changes as noted above. No acute consolidation or effusion. <Electronically signed by Nnamdi Hamilton > 05/22/21 [id number]
== END ==
LOC: M RAD 09:29
PROVIDERS: ATTEND Family Medicine
DX: R06.00 Dyspnea, unspecified (principal); J44.9 Chronic obstructive pulmonary disease, unspecified; Z71.6 Tobacco abuse counseling

== ENCOUNTER → 2021-05-22 | Outpatient (REF) | payer MEDICARE | LOC: M LABDRWAD 12:36 | PROVIDERS: ATTEND Urology | DX: Z12.5 Encounter for screening for malignant neoplasm of prostate (principal); R97.20 Elevated prostate specific antigen [PSA] ==

== ENCOUNTER → 2021-08-07 | Outpatient (REF) | payer MEDICARE ==
[~2021-08-07] MED LIST changes: +POTA-151 PO; -POTA20TA6 PO
== END ==
LOC: M LAB REF 16:40
PROVIDERS: ATTEND Nurse Practitioner Family
DX: N18.2 Chronic kidney disease, stage 2 (mild) (principal)

== ENCOUNTER → 2021-09-12 | Outpatient (REF) | payer MEDICARE | LOC: M SMT 17:49 | PROVIDERS: ATTEND Urology | DX: C80.1 Malignant (primary) neoplasm, unspecified (principal) ==

== ENCOUNTER → 2021-11-21 | Outpatient (REF) | payer MEDICARE ==
[2021-11-21 16:01] LABS: HEMATOCRIT 45.6 % (42.0-52.0); HEMOGLOBIN 14.9 g/dl (13.5-17.5); MEAN CORPUSCULAR HEMOGLOBIN 30.8 pg (27.0-33.0); MEAN CORPUSCULAR HGB CONC 32.7 g/dl (32.0-36.5); MEAN CORPUSCULAR VOLUME 94.4 fl (80.0-96.0); PLATELET COUNT, AUTOMATED 178 10^3/uL (150-450); RED BLOOD COUNT 4.83 10^6/uL (4.30-6.10); WHITE BLOOD COUNT 6.3 10^3/uL (4.0-10.0)
[2021-11-21 16:06] LABS: ALBUMIN 3.1 GM/DL (3.2-5.2); BILIRUBIN,TOTAL 0.4 MG/DL (0.2-1.0); C REACTIVE PROTEIN QUANTITATIV 0.3 MG/DL (0.00-0.30); CALCIUM LEVEL 8.5 MG/DL (8.8-10.2); CHOLESTEROL RISK RATIO 1.875 (<5); CREATININE FOR GFR 1.36 MG/DL (0.70-1.30); GLOMERULAR FILTRATION RATE 54.2 (>42); POTASSIUM SERUM 3.9 MEQ/L (3.5-5.1); TOTAL PROTEIN 6.9 GM/DL (6.4-8.2)
[2021-11-21 19:16] LABS: HEMOGLOBIN A1c 5.9 %
== END ==
LOC: M SFHCADAM 12:14
PROVIDERS: ATTEND Family Medicine
DX: I65.29 Occlusion and stenosis of unspecified carotid artery (principal); E78.2 Mixed hyperlipidemia; M48.07 Spinal stenosis, lumbosacral region; E74.9 Disorder of carbohydrate metabolism, unspecified; Z79.899 Other long term (current) drug therapy

== ENCOUNTER → 2021-11-21 | Outpatient (CLI) | payer MEDICARE ==
[2021-11-21 16:01] LABS: BLOOD UREA NITROGEN 14 MG/DL (7-18); C REACTIVE PROTEIN QUANTITATIV < 0.30 MG/DL (0.00-0.30)
== END ==
LOC: M ADAMS 12:15
PROVIDERS: ATTEND Orthopaedic Surgery
DX: M54.42 Lumbago with sciatica, left side (principal)

== ENCOUNTER 2022-02-20 13:21 | Emergency (ER) | payer MEDICARE ==
[~2022-02-20] VITALS: Ht 180.3 cm; Wt 78.3 kg
[2022-02-20] MEDS ORDERED: CHLO125TA PO (14:10)
[2022-02-20] MEDS ORDERED: SPIR50TA4 PO (14:10)
[2022-02-20 14:46] LABS: BASO # 0.1 10^3/uL (0.0-0.2); BASO % 0.9 % (0.0-1.0); EOS # 0.5 10^3/uL (0.0-0.5); EOS % 8.3 % (0.0-3.0); HEMATOCRIT 43.5 % (42.0-52.0); HEMOGLOBIN 14.5 g/dl (13.5-17.5); LYMPH # 1.5 10^3/uL (1.5-5.0); LYMPH % 25.7 % (24.0-44.0); MEAN CORPUSCULAR HEMOGLOBIN 30.8 pg (27.0-33.0); MEAN CORPUSCULAR HGB CONC 33.3 g/dl (32.0-36.5); MEAN CORPUSCULAR VOLUME 92.4 fl (80.0-96.0); MONO # 0.4 10^3/uL (0.0-0.8); MONO % 6.1 % (2.0-8.0); NEUTROPHILS # 3.5 10^3/uL (1.5-8.5); NEUTROPHILS % 58.8 % (36.0-66.0); RED BLOOD COUNT 4.71 10^6/uL (4.30-6.10); WHITE BLOOD COUNT 5.9 10^3/uL (4.0-10.0)
[2022-02-20 14:54] LABS: INR 0.88; PARTIAL THROMBOPLASTIN TIME 22.3 SECONDS (25.9-37.0); PROTHROMBIN TIME 12.3 SECONDS (12.7-14.5)
[2022-02-20 15:26] LABS: ALBUMIN 3.4 GM/DL (3.2-5.2); ALT/SGPT 14 U/L (12-78); BILIRUBIN,DIRECT < 0.1 MG/DL (0.0-0.2); BILIRUBIN,TOTAL 0.7 MG/DL (0.2-1.0); BLOOD UREA NITROGEN 20 MG/DL (7-18); CALCIUM LEVEL 8.8 MG/DL (8.8-10.2); CARBON DIOXIDE LEVEL 28 MEQ/L (21-32); CHLORIDE LEVEL 101 MEQ/L (98-107); FREE T4 1.02 NG/DL (0.76-1.46); GLOMERULAR FILTRATION RATE 52.3 (>42); GLUCOSE, FASTING 95 MG/DL (70-100); LIPASE 93 U/L (73-393); NT-PRO BNP 382 PG/ML (<450); POTASSIUM SERUM 4.7 MEQ/L (3.5-5.1); SODIUM LEVEL 134 MEQ/L (136-145); THYROID STIMULATING HORMONE 0.944 uIU/ML (0.358-3.740); TOTAL PROTEIN 7.4 GM/DL (6.4-8.2)
[2022-02-20 15:57] VITALS: BP 164/82
== END 2022-02-20 16:00 | disposition home or self-care (01) ==
LOC: M ED 13:21
DX: R06.02 Shortness of breath (principal); I10 Essential (primary) hypertension; I48.91 Unspecified atrial fibrillation; J44.9 Chronic obstructive pulmonary disease, unspecified; Z88.0 Allergy status to penicillin; Z88.8 Allergy status to other drugs, medicaments and biological substances

== ENCOUNTER → 2022-03-16 | Outpatient (CLI) | payer MEDICARE ==
[~2022-03-16] MED LIST changes: +CHLO125TA PO; +SPIR50TA4 PO
== END ==
LOC: M PLARAD 10:41
PROVIDERS: ATTEND Orthopaedic Surgery
DX: M54.42 Lumbago with sciatica, left side (principal); M48.061 Spinal stenosis, lumbar region without neurogenic claudication; M51.26 Other intervertebral disc displacement, lumbar region

== ENCOUNTER → 2022-03-19 | Outpatient (REF) | payer MEDICARE | LOC: M SMT 12:54 | PROVIDERS: ATTEND Urology | DX: C80.1 Malignant (primary) neoplasm, unspecified (principal) ==

== ENCOUNTER → 2022-06-28 | Outpatient (CLI) | payer MEDICARE ==
[~2022-06-28] MED LIST changes: +CLOP75TA99 PO; -PLAV1TAB2 PO
== END ==
LOC: M RAD 07:57
PROVIDERS: ATTEND Physician Assistant
DX: Z87.891 Personal history of nicotine dependence (principal)

== ENCOUNTER → 2022-07-06 | Outpatient (REF) | payer MEDICARE ==
[2022-07-06 14:28] LABS: HEMATOCRIT 40.7 % (42.0-52.0); HEMOGLOBIN 13.2 g/dl (13.5-17.5); MEAN CORPUSCULAR HEMOGLOBIN 31.8 pg (27.0-33.0); MEAN CORPUSCULAR HGB CONC 32.4 g/dl (32.0-36.5); MEAN CORPUSCULAR VOLUME 98.1 fl (80.0-96.0); PLATELET COUNT, AUTOMATED 193 10^3/uL (150-450); RED BLOOD COUNT 4.15 10^6/uL (4.30-6.10); WHITE BLOOD COUNT 7.2 10^3/uL (4.0-10.0)
[2022-07-06 14:48] LABS: ALBUMIN 3.6 G/DL (3.2-5.2); BILIRUBIN,TOTAL 0.3 MG/DL (0.3-1.2); CHOLESTEROL RISK RATIO 2.26 (<5); CREATININE FOR GFR 1.52 MG/DL (0.70-1.30); GLOMERULAR FILTRATION RATE 47.6 (>42); HDL CHOLESTEROL 36.2 MG/DL (>40); LDL CHOLESTEROL 30.4 MG/DL (<100); POTASSIUM SERUM 4.2 MMOL/L (3.5-5.1); TOTAL PROTEIN 6.7 G/DL (5.7-8.2)
[2022-07-06 15:40] LABS: HEMOGLOBIN A1c 5.5 % (4.0-6.0)
== END ==
LOC: M SFHCADAM 10:08
PROVIDERS: ATTEND Family Medicine
DX: I50.20 Unspecified systolic (congestive) heart failure (principal); E78.2 Mixed hyperlipidemia; E74.9 Disorder of carbohydrate metabolism, unspecified; N18.30 Chronic kidney disease, stage 3 unspecified

== ENCOUNTER 2022-08-07 03:37 | Emergency (ER) | payer MEDICARE ==
[~2022-08-07] VITALS: Ht 180.3 cm; Wt 77.3 kg
[2022-08-07 03:38] VITALS: BP 116/69
== END 2022-08-07 06:06 | disposition left against medical advice (07) ==
LOC: M ED 03:37
DX: Z53.21 Procedure and treatment not carried out due to patient leaving prior to being seen by health care provider (principal)

== ENCOUNTER → 2022-08-16 | Outpatient (REF) | payer MEDICARE ==
[2022-08-16 14:50] LABS: BASO # 0.1 10^3/uL (0.0-0.2); BASO % 0.7 % (0.0-1.0); EOS # 0.2 10^3/uL (0.0-0.5); EOS % 2.9 % (0.0-3.0); HEMATOCRIT 39.2 % (42.0-52.0); LYMPH # 1.3 10^3/uL (1.5-5.0); LYMPH % 18.2 % (24.0-44.0); MEAN CORPUSCULAR HEMOGLOBIN 31.4 pg (27.0-33.0); MEAN CORPUSCULAR HGB CONC 33.2 g/dl (32.0-36.5); MEAN CORPUSCULAR VOLUME 94.7 fl (80.0-96.0); MONO # 0.7 10^3/uL (0.0-0.8); MONO % 9.9 % (2.0-8.0); NEUTROPHILS # 4.9 10^3/uL (1.5-8.5); NEUTROPHILS % 68.2 % (36.0-66.0); PLATELET COUNT, AUTOMATED 214 10^3/uL (150-450); RED BLOOD COUNT 4.14 10^6/uL (4.30-6.10); WHITE BLOOD COUNT 7.2 10^3/uL (4.0-10.0)
[2022-08-16 15:26] LABS: CALCIUM LEVEL 8.8 MG/DL (8.3-10.6); CREATININE FOR GFR 1.59 MG/DL (0.70-1.30); GLOMERULAR FILTRATION RATE 45.2 (>42); POTASSIUM SERUM 3.7 MMOL/L (3.5-5.1)
== END ==
LOC: M SFHCADAM 07:20
PROVIDERS: ATTEND Physician Assistant
DX: R19.7 Diarrhea, unspecified (principal)

== ENCOUNTER → 2022-08-16 | Outpatient (CLI) | payer MEDICARE | LOC: M ADAMS 07:35 | PROVIDERS: ATTEND Physician Assistant | DX: J44.1 Chronic obstructive pulmonary disease with (acute) exacerbation (principal) ==

== ENCOUNTER 2022-08-19 17:22 | Observation (INO) | payer MEDICARE ==
[~2022-08-19] VITALS: Ht 180.3 cm; Wt 73.3 kg
[~2022-08-19 17:22] MED LIST changes: +CLOP75TA2 PO
[2022-08-19 18:15] LABS: VENOUS BASE EXCESS -2.8 (-2.0-2.0); VENOUS HCO3 22.8 MEQ/L (23.0-27.0); VENOUS PARTIAL PRESSURE CO2 42.6 mmHg (38.0-50.0); VENOUS PARTIAL PRESSURE O2 29.4 mmHg (30.0-50.0); VENOUS PH 7.346 UNITS (7.330-7.430); VENOUS STANDARD HCO3 21.2 MEQ/L; VENOUS TOTAL CO2 24.1 MEQ/L (24.0-28.0)
[2022-08-19 18:24] LABS: BASO % 0.5 % (0.0-1.0); EOS # 0.2 10^3/uL (0.0-0.5); HEMATOCRIT 37.1 % (42.0-52.0); LYMPH # 0.8 10^3/uL (1.5-5.0); LYMPH % 11.1 % (24.0-44.0); MEAN CORPUSCULAR HEMOGLOBIN 31.9 pg (27.0-33.0); MEAN CORPUSCULAR VOLUME 90.9 fl (80.0-96.0); MONO # 0.6 10^3/uL (0.0-0.8); NEUTROPHILS # 5.9 10^3/uL (1.5-8.5); NEUTROPHILS % 77.9 % (36.0-66.0); PLATELET COUNT, AUTOMATED 177 10^3/uL (150-450); RED BLOOD COUNT 4.08 10^6/uL (4.30-6.10); WHITE BLOOD COUNT 7.5 10^3/uL (4.0-10.0)
[2022-08-19 18:52] LABS: ALBUMIN 3.1 G/DL (3.2-5.2); BILIRUBIN,DIRECT 0.3 MG/DL (<0.4); BILIRUBIN,TOTAL 0.7 MG/DL (0.3-1.2); CALCIUM LEVEL 8.2 MG/DL (8.3-10.6); CK-MB VALUE MASS 2.6 NG/ML (<3.6); CREATININE FOR GFR 1.76 MG/DL (0.70-1.30); FREE T4 1.23 NG/DL (0.89-1.76); GLOMERULAR FILTRATION RATE 40.2 (>42); MAGNESIUM LEVEL 1.5 MG/DL (1.8-2.4); MB/CK RELATIVE INDEX 3.46 (< OR =4); POTASSIUM SERUM 3.2 MMOL/L (3.5-5.1); THYROID STIMULATING HORMONE 0.67 uIU/ML (0.55-4.78); TOTAL PROTEIN 6.3 G/DL (5.7-8.2)
[2022-08-19] MEDS ORDERED: ISOVUE-370 76% 100ML VIAL As Ordered ONE (18:56)
[2022-08-19] MEDS ORDERED: POTASSIUM CHLORIDE 10MEQ SR TABLET PO ONE ×2 (19:15→20:15)
[2022-08-19 19:35] LABS: RSV AMPLIFICATION NEGATIVE (NEGATIVE)
[2022-08-19] MEDS ORDERED: JARD1TAB PO (20:33)
[2022-08-19] MEDS ORDERED: DOCU240C41 PO (20:33)
[2022-08-19] MEDS ORDERED: LEVO1TAB39 PO (20:33)
[2022-08-19] MEDS ORDERED: B-12100010 PO (20:33)
[2022-08-19] MEDS ORDERED: ASPI81TA26 PO (20:33)
[2022-08-19] MEDS ORDERED: HOME MED LIST COMPLETE! XX SCH (20:35)
[2022-08-19 20:44] LABS: CK-MB VALUE MASS 1.3 NG/ML (<3.6)
[2022-08-19 20:46] LABS: MB/CK RELATIVE INDEX 2.16 (< OR =4)
[2022-08-19] MEDS ORDERED: ACETAMINOPHEN TAB 650MG DOSE (2X325MG) PO PRN (23:10)
[2022-08-20 01:40] VITALS: BP 159/71
[2022-08-20] MEDS ORDERED: NS 1,000 ML IV SCH (02:25)
[2022-08-20] MEDS ORDERED: GLUCOSE 4GM CHEW TABLET PO PRN (02:40)
[2022-08-20] MEDS ORDERED: DEXTROSE 50% 50ML SYRINGE IV PRN (02:40)
[2022-08-20] MEDS ORDERED: GLUCAGON INJ 1MG VIAL SC PRN (02:40)
[2022-08-20] MEDS: rOPINIRole 1MG TAB PO SCH ×2 (02:49→20:11)
[2022-08-20 06:00] VITALS: BP 125/57
[2022-08-20 06:42] VITALS: BP_SYST 101; BP_SYST 112; BP_SYST 125; BP_DIAS 57
[2022-08-20 07:12] LABS: CREATININE FOR GFR 1.64 MG/DL (0.70-1.30); GLOMERULAR FILTRATION RATE 43.6 (>42); POTASSIUM SERUM 3.2 MMOL/L (3.5-5.1)
[2022-08-20] MEDS ORDERED: INSULIN LISPRO (NovoLOG) PER UNIT SC SCH ×2 (07:30→21:00)
[2022-08-20] MEDS ORDERED: POTASSIUM CHLORIDE 10MEQ SR TABLET PO ONE (07:45)
[2022-08-20] MEDS ORDERED: SPIRONOLACTONE 50 MG TAB PO SCH (09:00)
[2022-08-20] MEDS ORDERED: CHLORTHALIDONE 25 MG TAB PO SCH (09:00)
[2022-08-20] MEDS ORDERED: lisinopriL 40MG TAB PO SCH (09:00)
[2022-08-20] MEDS ORDERED: PROMETHAZINE 25 MG TAB PO ONE (09:45)
[2022-08-20] MEDS: ATORVASTATIN 20 MG TAB PO SCH (10:29)
[2022-08-20] MEDS: ASPIRIN 81MG ENTERIC TABLET PO SCH (10:29)
[2022-08-20] MEDS: CLOPIDOGREL 75 MG TAB PO SCH (10:29)
[2022-08-20 11:29] LABS: HEMOGLOBIN A1c 5.8 % (4.0-6.0)
[2022-08-20 12:09] LABS: CALCIUM LEVEL 8.3 MG/DL (8.3-10.6); CREATININE FOR GFR 1.67 MG/DL (0.70-1.30); GLOMERULAR FILTRATION RATE 42.7 (>42); POTASSIUM SERUM 3.5 MMOL/L (3.5-5.1)
[2022-08-20 14:00] VITALS: BP 122/55
[2022-08-20] MEDS ORDERED: MAG SULF 1GM/100ML (MAG RUN) 1 GM in IV 1 EA IV ONE (15:00)
[2022-08-20 17:56] LABS: APPEARANCE, URINE CLEAR (CLEAR); BACTERIA, URINE AUTO NEGATIVE (NEGATIVE); BILIRUBIN, URINE AUTO NEGATIVE (NEGATIVE); BLOOD, URINE BLOOD NEGATIVE (NEGATIVE); COLOR, URINE STRAW (YELLOW); GLUCOSE, URINE (UA) AUTO 3+ mg/dL (NEGATIVE); KETONE, URINE AUTO NEGATIVE (NEGATIVE); LEUKOCYTE ESTERASE, URINE AUTO 1+ (NEGATIVE); NITRITE, URINE AUTO NEGATIVE (NEGATIVE); PROTEIN, URINE AUTO NEGATIVE (NEGATIVE); RBC, URINE AUTO 0 /HPF (0-3); SPECIFIC GRAVITY URINE AUTO 1.009 (1.002-1.035); SQUAMOUS EPITHELIAL CELL UR AU 0 /HPF (0-6); UROBILINOGEN, URINE AUTO 0.2 mg/dL (0.0-2.0); WBC, URINE AUTO 13 /HPF (0-3)
[2022-08-20 22:00] VITALS: BP 118/55
[2022-08-21 06:00] VITALS: BP 113/58
[2022-08-21 06:08] LABS: HEMATOCRIT 33.2 % (42.0-52.0); HEMOGLOBIN 11.7 g/dl (13.5-17.5); MEAN CORPUSCULAR HEMOGLOBIN 32.2 pg (27.0-33.0); MEAN CORPUSCULAR HGB CONC 35.2 g/dl (32.0-36.5); MEAN CORPUSCULAR VOLUME 91.5 fl (80.0-96.0); PLATELET COUNT, AUTOMATED 145 10^3/uL (150-450); RED BLOOD COUNT 3.63 10^6/uL (4.30-6.10); WHITE BLOOD COUNT 5.4 10^3/uL (4.0-10.0)
[2022-08-21 06:40] LABS: CREATININE FOR GFR 1.51 MG/DL (0.70-1.30); GLOMERULAR FILTRATION RATE 47.9 (>42); MAGNESIUM LEVEL 1.7 MG/DL (1.8-2.4); POTASSIUM SERUM 3.7 MMOL/L (3.5-5.1)
[2022-08-21] MEDS ORDERED: MAG SULF 1GM/100ML (MAG RUN) 1 GM in IV 1 EA IV ONE (08:00)
[2022-08-21] MEDS: CLOPIDOGREL 75 MG TAB PO SCH (08:29)
[2022-08-21] MEDS: ATORVASTATIN 20 MG TAB PO SCH (08:29)
[2022-08-21] MEDS: ASPIRIN 81MG ENTERIC TABLET PO SCH (08:29)
== END 2022-08-21 11:40 | disposition home or self-care (01) ==
LOC: M ED 17:22 → M ED INP 17:23 → M MSPAV 08-20 01:40
PROVIDERS: ADMIT Internal Medicine; ATTEND Internal Medicine
DX: R55 Syncope and collapse (principal); N17.9 Acute kidney failure, unspecified; N18.30 Chronic kidney disease, stage 3 unspecified; I48.91 Unspecified atrial fibrillation; R11.2 Nausea with vomiting, unspecified; E87.1 Hypo-osmolality and hyponatremia; E87.8 Other disorders of electrolyte and fluid balance, not elsewhere classified; K52.9 Noninfective gastroenteritis and colitis, unspecified; I12.9 Hypertensive chronic kidney disease with stage 1 through stage 4 chronic kidney disease, or unspecified chronic kidney disease; E11.9 Type 2 diabetes mellitus without complications; G25.81 Restless legs syndrome; I69.354 Hemiplegia and hemiparesis following cerebral infarction affecting left non-dominant side; I65.23 Occlusion and stenosis of bilateral carotid arteries; Z95.828 Presence of other vascular implants and grafts; Z85.528 Personal history of other malignant neoplasm of kidney; Z90.5 Acquired absence of kidney; J44.9 Chronic obstructive pulmonary disease, unspecified; Z85.51 Personal history of malignant neoplasm of bladder; I95.9 Hypotension, unspecified; D64.9 Anemia, unspecified; Z88.0 Allergy status to penicillin; Z88.4 Allergy status to anesthetic agent; Z79.899 Other long term (current) drug therapy; Z79.2 Long term (current) use of antibiotics; Z79.82 Long term (current) use of aspirin; Z79.02 Long term (current) use of antithrombotics/antiplatelets; Z79.84 Long term (current) use of oral hypoglycemic drugs; Z86.16 Personal history of COVID-19
CPT/HCPCS: 36415; 70450; 70551; 71045; 71250; 72125; 74177; 80048; 80076; 81001; 81002; 82550; 82553; 82803; 83036; 83690; 83735; 83930; 83935; 84133; 84300; 84439; 84443; 84484; 85025; 85027; 87631; 93005; 93041; 93306; 93880; 94760; 96360; 96361; 97161; 97165; 97535; 99285; G0378; Q9967

== ENCOUNTER → 2022-09-17 | Outpatient (REF) | payer MEDICARE ==
[~2022-09-17] MED LIST changes: +ASPI81TA26 PO; +B-12100010 PO; +DOCU240C41 PO; +JARD1TAB PO; +LEVO1TAB39 PO
== END ==
LOC: M SMT 16:57
PROVIDERS: ATTEND Urology
DX: C80.1 Malignant (primary) neoplasm, unspecified (principal)

== ENCOUNTER 2023-03-29 04:46 | Emergency (ER) | payer MEDICARE ==
[~2023-03-29] VITALS: Ht 177.8 cm; Wt 77.7 kg
[~2023-03-29 04:46] MED LIST changes: +FINA-48 PO; +POTA-298; -POTA1TAB14; -PROS5TAB PO; -ROPI0.5T3 PO; +ROPI0.5T33 PO; +VALI2TAB PO
[2023-03-29 04:47] VITALS: BP 180/88; TEMP 98; O2SAT 97
== END 2023-03-29 05:49 | disposition left against medical advice (07) ==
LOC: M ED 04:46
DX: Z53.21 Procedure and treatment not carried out due to patient leaving prior to being seen by health care provider (principal)

== ENCOUNTER → 2023-04-02 | Outpatient (CLI) | payer MEDICARE ==
[~2023-04-02] MED LIST changes: +ISOVUE-370 76% 100ML VIAL As Ordered ONE
== END ==
LOC: M RAD 14:39
PROVIDERS: ATTEND Physician Assistant Medical
DX: K11.8 Other diseases of salivary glands (principal)
CPT/HCPCS: 70491; Q9967

== ENCOUNTER → 2023-04-11 | Outpatient (CLI) | payer MEDICARE ==
[~2023-04-11] MED LIST changes: -ISOVUE-370 76% 100ML VIAL As Ordered ONE
== END ==
LOC: M RAD 10:34
PROVIDERS: ATTEND Surgery Vascular Surgery
DX: I65.23 Occlusion and stenosis of bilateral carotid arteries (principal)

== ENCOUNTER → 2023-04-26 | Outpatient (REF) | payer MEDICARE | LOC: M SMT 17:14 | PROVIDERS: ATTEND Urology | DX: C80.1 Malignant (primary) neoplasm, unspecified (principal) ==

== ENCOUNTER → 2023-05-13 | Outpatient (CLI) | payer MEDICARE ==
[~2023-05-13] MED LIST changes: +LIDOCAINE 1% MDV 20ML VIAL As Ordered ONE
[2023-05-13 11:55] VITALS: TEMP 97.5
[2023-05-13 12:56] VITALS: BP 200/90; O2SAT 95
== END ==
LOC: M IRPRO 11:37
PROVIDERS: ATTEND Otolaryngology
DX: D37.030 Neoplasm of uncertain behavior of the parotid salivary glands (principal)

== ENCOUNTER → 2023-06-24 | Outpatient (REF) | payer MEDICARE ==
[~2023-06-24] MED LIST changes: -LIDOCAINE 1% MDV 20ML VIAL As Ordered ONE
[2023-06-24 19:08] LABS: BACTERIA, URINE AUTO 1+ (NEGATIVE); MUCUS, URINE SMALL (NEGATIVE); RBC, URINE AUTO 3 /HPF (0-3); SQUAMOUS EPITHELIAL CELL UR AU 1 /HPF (0-6); WBC, URINE AUTO 85 /HPF (0-3)
== END ==
LOC: M LAB REF 16:57
PROVIDERS: ATTEND Internal Medicine Nephrology
DX: R82.81 Pyuria (principal)

== ENCOUNTER → 2023-07-02 | Outpatient (REF) | payer MEDICARE ==
[2023-07-02 13:33] LABS: BASO % 0.5 % (0.0-1.0); EOS # 0.3 10^3/uL (0.0-0.5); EOS % 4.3 % (0.0-3.0); HEMATOCRIT 44.4 % (42.0-52.0); HEMOGLOBIN 14.7 g/dl (13.5-17.5); LYMPH # 1.7 10^3/uL (1.5-5.0); MEAN CORPUSCULAR HEMOGLOBIN 31.4 pg (27.0-33.0); MEAN CORPUSCULAR HGB CONC 33.1 g/dl (32.0-36.5); MEAN CORPUSCULAR VOLUME 94.9 fl (80.0-96.0); MONO # 0.7 10^3/uL (0.0-0.8); MONO % 9.3 % (2.0-8.0); NEUTROPHILS % 63.6 % (36.0-66.0); PLATELET COUNT, AUTOMATED 219 10^3/uL (150-450); RED BLOOD COUNT 4.68 10^6/uL (4.30-6.10); WHITE BLOOD COUNT 7.9 10^3/uL (4.0-10.0)
[2023-07-02 13:59] LABS: ALBUMIN 3.3 G/DL (3.2-5.2); BILIRUBIN,TOTAL 0.5 MG/DL (0.3-1.2); CALCIUM LEVEL 9.2 MG/DL (8.3-10.6); CHOLESTEROL RISK RATIO 2.03 (<5); CREATININE FOR GFR 1.32 MG/DL (0.70-1.30); GLOMERULAR FILTRATION RATE 55.8 (>42); HDL CHOLESTEROL 47.7 MG/DL (>40); LDL CHOLESTEROL 30.7 MG/DL (<100); NON-HDL-C 49.3 MG/DL; POTASSIUM SERUM 4.4 MMOL/L (3.5-5.1); TOTAL PROTEIN 6.8 G/DL (5.7-8.2)
[2023-07-02 14:09] LABS: HEMOGLOBIN A1c 5.4 % (4.0-6.0)
== END ==
LOC: M SFHCADAM 11:31
PROVIDERS: ATTEND Family Medicine
DX: K11.8 Other diseases of salivary glands (principal); I11.9 Hypertensive heart disease without heart failure; E78.2 Mixed hyperlipidemia; E74.9 Disorder of carbohydrate metabolism, unspecified; Z79.899 Other long term (current) drug therapy

== ENCOUNTER → 2023-11-14 | Outpatient (CLI) | payer MEDICARE ==
[2023-11-14 15:04] LABS: CALCIUM LEVEL 9.1 MG/DL (8.3-10.6); CREATININE FOR GFR 1.79 MG/DL (0.70-1.30); GLOMERULAR FILTRATION RATE 39.3 (>42); POTASSIUM SERUM 5.1 MMOL/L (3.5-5.1)
== END ==
LOC: M LABDRWAD 10:51
PROVIDERS: ATTEND Internal Medicine Cardiovascular Disease
DX: I50.22 Chronic systolic (congestive) heart failure (principal)

== ENCOUNTER → 2024-04-13 | Outpatient (CLI) | payer MEDICARE, MEDICAID | LOC: M RAD 09:02 | PROVIDERS: ATTEND Physician Assistant | DX: I65.29 Occlusion and stenosis of unspecified carotid artery (principal) ==

== ENCOUNTER → 2024-04-27 | Outpatient (REF) | payer MEDICARE, MEDICAID | LOC: M SMT 17:32 | PROVIDERS: ATTEND Urology | DX: C80.1 Malignant (primary) neoplasm, unspecified (principal) ==

== ENCOUNTER → 2024-05-21 | Outpatient (CLI) | payer MEDICARE, MEDICAID ==
[2024-05-21 16:46] LABS: HEMATOCRIT 40.4 % (42.0-52.0); HEMOGLOBIN 13.2 g/dl (13.5-17.5); MEAN CORPUSCULAR HEMOGLOBIN 32.6 pg (27.0-33.0); MEAN CORPUSCULAR HGB CONC 32.7 g/dl (32.0-36.5); MEAN CORPUSCULAR VOLUME 99.8 fl (80.0-96.0); PLATELET COUNT, AUTOMATED 181 10^3/uL (150-450); RED BLOOD COUNT 4.05 10^6/uL (4.30-6.10); WHITE BLOOD COUNT 7.2 10^3/uL (4.0-10.0)
[2024-05-21 17:19] LABS: ALBUMIN 3.4 G/DL (3.2-5.2); ALKALINE PHOSPHATASE 90 U/L (40-129); ALT/SGPT 10 U/L (7.0-40); AST/SGOT 12 U/L (<34); BILIRUBIN,TOTAL 0.8 MG/DL (0.3-1.2); BLOOD UREA NITROGEN 15 MG/DL (9-23); CALCIUM LEVEL 9.7 MG/DL (8.3-10.6); CARBON DIOXIDE LEVEL 30 MMOL/L (20-31); CHLORIDE LEVEL 103 MMOL/L (98-107); CHOLESTEROL LEVEL 106 MG/DL (<200); CHOLESTEROL RISK RATIO 2.34 (<5); CREATININE FOR GFR 1.34 MG/DL (0.70-1.30); FREE T4 1.24 NG/DL (0.89-1.76); GLOMERULAR FILTRATION RATE 54.7 (>42); GLUCOSE, FASTING 104 MG/DL (74-106); HDL CHOLESTEROL 45.2 MG/DL (>40); LDL CHOLESTEROL 41.6 MG/DL (<100); NON-HDL-C 60.8 MG/DL; POTASSIUM SERUM 3.9 MMOL/L (3.5-5.1); SODIUM LEVEL 140 MMOL/L (136-145); THYROID STIMULATING HORMONE 1.077 uIU/ML (0.55-4.78); TOTAL PROTEIN 6.9 G/DL (5.7-8.2); TRIGLYCERIDES LEVEL 96 MG/DL (<150)
== END ==
LOC: M WUC 12:22
PROVIDERS: ATTEND Family Medicine
DX: R41.3 Other amnesia (principal); E78.00 Pure hypercholesterolemia, unspecified

== ENCOUNTER → 2024-05-25 | Outpatient (CLI) | payer MEDICARE, MEDICAID | LOC: M RAD 12:27 | PROVIDERS: ATTEND Otolaryngology | DX: D11.0 Benign neoplasm of parotid gland (principal) ==

== ENCOUNTER → 2024-08-25 | Outpatient (CLI) | payer MEDICARE, MEDICAID ==
[~2024-08-25] MED LIST changes: -AMIT24CA7 PO; +LUBI24CA32 PO
== END ==
LOC: M PLAIMG 13:12
PROVIDERS: ATTEND Physician Assistant
DX: R91.8 Other nonspecific abnormal finding of lung field (principal)

== ENCOUNTER → 2025-02-24 | Outpatient (REF) | payer MEDICARE, MEDICAID ==
[~2025-02-24] MED LIST changes: +LISI40TA10 PO; -LISI40TA4 PO
[2025-02-24 18:42] LABS: ALT/SGPT 10.0 U/L (7.0-40); AST/SGOT 18.0 U/L (<34); CALCIUM LEVEL 9.6 MG/DL (8.3-10.6); CARBON DIOXIDE LEVEL 32.0 MMOL/L (20-31); CHLORIDE LEVEL 103.0 MMOL/L (98-107); CREATININE FOR GFR 1.26 MG/DL (0.70-1.30); GLOMERULAR FILTRATION RATE 57.7 (>35); POTASSIUM SERUM 3.7 MMOL/L (3.5-5.1); SODIUM LEVEL 143.0 MMOL/L (136-145)
[2025-02-24 18:46] LABS: FREE T4 1.23 NG/DL (0.89-1.76); PLATELET COUNT, AUTOMATED 199 10^3/uL (150-450)
[2025-02-24 19:34] LABS: ESTIMATED AVERAGE GLUCOSE 103.0 MG/DL (60-110)
== END ==
LOC: M SFHCADAM 14:23
PROVIDERS: ATTEND Family Medicine
DX: I50.20 Unspecified systolic (congestive) heart failure (principal); I11.9 Hypertensive heart disease without heart failure; E74.9 Disorder of carbohydrate metabolism, unspecified; E04.1 Nontoxic single thyroid nodule; N18.31 Chronic kidney disease, stage 3a; Z79.899 Other long term (current) drug therapy

== ENCOUNTER → 2025-03-16 | Outpatient (CLI) | payer MEDICARE, MEDICAID | LOC: M RAD 10:47 | PROVIDERS: ATTEND Family Medicine | DX: E04.1 Nontoxic single thyroid nodule (principal) ==

== ENCOUNTER → 2025-04-14 | Outpatient (CLI) | payer MEDICARE, MEDICAID | LOC: M RAD 10:13 | PROVIDERS: ATTEND Physician Assistant | DX: I65.23 Occlusion and stenosis of bilateral carotid arteries (principal) ==